=== PATIENT | female | born 1985 | race Caucasian/White ===

== ENCOUNTER 2018-01-28 22:46 | Observation (INO) | payer BC ==
[2018-01-29 00:01] LABS: Protime INR 1.02
[2018-01-29 00:02] LABS: Absolute Lymphocytes (CBC) 2.7 K/uL (0.7-4.9); Absolute Monocytes 0.8 K/uL (0.1-1.3); Basophils % 0.7 % (0-1.3); Eosinophils % 4.6 % (0-4.4); Hematocrit 39.2 % (36.0-45.0); Lymphocytes % 24.5 % (15.3-44.8); MCV 82.6 fL (80-100); Monocytes % 6.9 % (3.3-12.3); RBC Red Blood Cell Count 4.74 M/uL (3.86-4.86)
[2018-01-29 00:28] LABS: ALT/SGPT 36 U/L (12-78); AST/SGOT 15 U/L (15-37); Albumin 3.9 g/dL (3.4-5.0); Alkaline Phosphatase 110 U/L (45-117); BUN Blood Urea Nitrogen 8 mg/dL (7-18); Bicarbonate 25 mmol/L (21-32); Bilirubin Direct < 0.1 mg/dL (0-0.2); Bilirubin Total 0.2 mg/dL (0.2-1.0); Glucose Level 102 mg/dL (74-106); NT PRO-BNP 10 pg/mL (<125); Potassium 3.8 mmol/L (3.5-5.1); Protein, Total 7.4 g/dL (6.4-8.2); Sodium Level 139 mmol/L (136-145); Troponin (Emerg Dept Use Only) < 0.02 ng/mL (0.0-0.045)
[2018-01-29] MEDS ORDERED: ACETAMINOPHEN 500 MG TAB ONE (01:09)
[2018-01-29] MEDS ORDERED: FAMOTIDINE 20 MG/2 ML VIAL IV ONE (01:09)
--- NOTE | 2018-01-29 01:47 | EDPHYS ---
Physician Documentation [facility] Name: Fariha Larsen Age: 32 yrs Sex: Female : 1985 Arrival Date: 01/28/2018 Time: 22:50 Bed 28 Private MD: Holly Saxena H ED Physician Moisés Blevins HPI: 01/28 23:56 This 32 yrs old Female presents to ER via Ambulatory with complaints of jr8 Palpitations. 23:56 Onset: The symptoms/episode began/occurred acutely, today. Modifying factors: The jr8 symptoms are aggravated by nothing. The symptoms are alleviated by nothing. Associated signs and symptoms: Pertinent positives: chest pain. Severity of symptoms: At their worst the symptoms were moderate in the emergency department the symptoms are unchanged. The patient has experienced similar episodes in the past, a few times. The patient has not recently seen a physician. Patient stated that she has had palpitations for the past few months. Has subsequently been started on thyroid medicine as well due to new diagnosis of hypothyroidism within the past few months as well. Stated that tonight had hot flashes and felt flush and "odd feeling". Started to have palpitations and chest tightness. 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 - Social history:: Smoking status: Patient/guardian denies using tobacco, Patient uses alcohol, occasionally. Patient/guardian denies using street drugs. - Ebola Screening: : No symptoms or risks identified at this time. ROS: 01/29 00:04 Eyes: Negative for injury, pain, redness, and discharge, ENT: Negative for injury, jr8 pain, and discharge, Neck: Negative for injury, pain, and swelling, Respiratory: Negative for shortness of breath, cough, wheezing, and pleuritic chest pain, Abdomen/GI: Negative for abdominal pain, nausea, vomiting, diarrhea, and constipation, Back: Negative for injury and pain, MS/Extremity: Negative for injury and deformity, Skin: Negative for injury, rash, and discoloration, Neuro: Negative for headache, weakness, numbness, tingling, and seizure. Cardiovascular: Positive for chest pain, palpitations. Exam: 00:04 Eyes: Pupils equal round and reactive to light, extra-ocular motions intact. Lids and jr8 lashes normal. Conjunctiva and sclera are non-icteric and not injected. Cornea within normal limits. Periorbital areas with no swelling, redness, or edema. ENT: Nares patent. No nasal discharge, no septal abnormalities noted. Tympanic membranes are normal and external auditory canals are clear. Oropharynx with no redness, swelling, or masses, exudates, or evidence of obstruction, uvula midline. Mucous membranes moist. Neck: Trachea midline, no thyromegaly or masses palpated, and no cervical lymphadenopathy. Supple, full range of motion without nuchal rigidity, or vertebral point tenderness. No Meningismus. Cardiovascular: Regular rate and rhythm with a normal S1 and S2. No gallops, murmurs, or rubs. Normal PMI, no JVD. No pulse deficits. Respiratory: Lungs have equal breath sounds bilaterally, clear to auscultation and percussion. No rales, rhonchi or wheezes noted. No increased work of breathing, no retractions or nasal flaring. Abdomen/GI: Soft, non-tender, with normal bowel sounds. No distension or tympany. No guarding or rebound. No evidence of tenderness throughout. Back: No spinal tenderness. No costovertebral tenderness. Full range of motion. Skin: Warm, dry with normal turgor. Normal color with no rashes, no lesions, and no evidence of cellulitis. MS/ Extremity: Pulses equal, no cyanosis. Neurovascular intact. Full, normal range of motion. Neuro: Awake and alert, GCS 15, oriented to person, place, time, and situation. Cranial nerves II-XII grossly intact. Motor strength 5/5 in all extremities. Sensory grossly intact. Cerebellar exam normal. Normal gait. 00:04 ECG was reviewed by the Attending Physician. Vital Signs: 01/28 23:05 BP 150 / 97; Pulse 94; Resp 16 S; Temp 98.2; Pulse Ox 97% on R/A; Weight 72.57 kg (R); bb Height 5 ft. 4 in. (162.56 cm) (R); Pain 0/10; 01/29 00:05 BP 139 / 86; Pulse 89; Resp 20; Pulse Ox 97% on R/A; mt 01:15 BP 136 / 82; Pulse 97; Resp 18; Pulse Ox 100% on R/A; Pain 2/10; mg2 02:06 BP 112 / 73; Pulse 104; Resp 18; Pulse Ox 97% on R/A; Pain 0/10; mg2 11 23:05 Body Mass Index 27.46 (72.57 kg, 162.56 cm) bb MDM: 01/28 22:56 Patient medically screened. 8 01/29 00:06 Data interpreted: secured entrance monitor: rate is 95 beats/min, rhythm is regular, with jr8 unifocal PVCs, Interpretation: normal rate, normal rhythm. 01:44 Data reviewed: vital signs, nurses notes, lab test result(s), EKG, and as a result, I 8 will admit patient. Counseling: I had a detailed discussion with the patient and/or guardian regarding: the historical points, exam findings, and any diagnostic results supporting the discharge/admit diagnosis, lab results, radiology results, the need for further work-up and treatment in the hospital. Physician consultation: Denton Rodriguez MD was called at 01:44, was contacted at 01:44, regarding admission, to the telemetry unit. consult, patient's condition, and will see patient in ED. 01/28 23:36 Order name: Basic Metabolic Panel; Complete Time: 00:01/28 23:36 Order name: CBC with Diff; Complete Time: 00:01/28 23:36 Order name: LFT's; Complete Time: 00:01/28 23:36 Order name: Magnesium; Complete Time: 00:01/28 23:36 Order name: NT PRO-BNP; Complete Time: 00:01/28 23:36 Order name: PT-INR; Complete Time: 00:09 01/28 23:36 Order name: Troponin (emerg Dept Use Only); Complete Time: 00:01/28 23:36 Order name: XRAY Chest (1 view) [facility] 01/28 23:36 Order name: EKG; Complete Time: 23:37 [facility] 01/29 00:03 Order name: TSH; Complete Time: 01:51 [facility] 01/29 04:05 Order name: Creatine Phosphokinase [facility] 01/29 04:05 Order name: CKMB Creatine Kinase MB [facility] 01/28 23:36 Order name: Cardiac monitoring; Complete Time: 23:38 [facility] 01/28 23:36 Order name: EKG - Nurse/Tech; Complete Time: 23:39 [facility] 01/28 23:36 Order name: IV Saline Lock; Complete Time: 23:39 [facility] 01/28 23:36 Order name: Labs collected and sent; Complete Time: 23:39 [facility] 01/28 23:36 Order name: O2 Per Protocol; Complete Time: 23:39 [facility] 01/28 23:36 Order name: O2 Sat Monitoring; Complete Time: 23:39 jr8 EC:04 Rate is 95 beats/min. Rhythm is regular, Normal Sinus Rhythm. QRS [place] is Normal. VT jr8 interval is normal at 166 msec. QRS interval is normal at 70 msec. QT interval is prolonged at 480 msec. No Q waves. T waves are Inverted in lead V1. No ST changes noted. Clinical impression: NSR w/ Non-specific ST/T Changes and No evidence of ischemia. Interpreted by me. Reviewed by me. Administered Medications: 01:05 Drug: Pepcid 20 mg Route: IVP; Site: right antecubital; mg2 01:37 Follow up: Response: No adverse reaction; Marked relief of symptoms mg2 01:05 Drug: Tylenol 1000 mg Route: PO; mg2 01:37 Follow up: Response: No adverse reaction; Marked relief of symptoms mg2 Disposition: 04:27 Co-signature as Attending Physician, Moisés Blevins MD. barrera Disposition: 01/29/18 01:46 Hospitalization ordered by Denton Rodriguez for Observation. Preliminary diagnosis are Abnormal electrocardiogram [ECG] [EKG], Ventricular premature depolarization, Near Syncope. - Bed requested for Telemetry/MedSurg (observation). - Status is Observation. wh - Condition is Stable. - Problem is new. - Symptoms are unchanged. UTI on Admission? No Signatures: Dispatcher [employer] [facility] Moisés Blevins MD MD pkl Ballard, Brenda, RN RN Funmilayo Zhu ms Bari Velazquez PA PA jr8 Huan, Amaya Adolfo Ramirez RN RN mg2 Corrections: (The following items were deleted from the chart) 00:04 11 23:56 Patient stated that she has had palpitations for the past few months. Has jr8 subsequently been started on thyroid medicine as well due to new diagnosis of hypothyroidism within the past few months as well. . jr8 01/29 03:08 01:46 Hospitalization Ordered by Denton Rodriguez MD for Observation. Preliminary ms diagnosis is Abnormal electrocardiogram [ECG] [EKG]; Ventricular premature depolarization; Near Syncope. Bed requested for Telemetry/MedSurg (observation). Status is Observation. Condition is Stable. Problem is new. Symptoms are unchanged. UTI on Admission? No. jr8 04:10 03:08 01/29/2018 01:46 Hospitalization Ordered by Denton Rodriguez MD for Observation. Preliminary diagnosis is Abnormal electrocardiogram [ECG] [EKG]; Ventricular premature depolarization; Near Syncope. Bed requested for Telemetry/MedSurg (observation). Status is Observation. Condition is Stable. Problem is new. Symptoms are unchanged. UTI on Admission? No. ms
--- NOTE | 2018-01-29 01:47 | ER ---
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 Transition of care: patient was not received from another setting of care. Onset of symptoms was January 28, 2018. Risk Assessment: Do you want to hurt yourself or someone else? Patient reports no desire to harm self or others. Initial Sepsis Screen: Does the patient meet any 2 criteria? No. Patient's initial sepsis screen is negative. Does the patient have a suspected source of infection? No. Patient's initial sepsis screen is negative. Care prior to arrival: None. 23:01 Method Of Arrival: Ambulatory 23:01 Acuity: FABIÁN 3 bb Triage Assessment: 01/29 04:09 General: Behavior is calm, cooperative, appropriate for age. 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 - Social history:: Smoking status: Patient/guardian denies using tobacco, Patient uses alcohol, occasionally. Patient/guardian denies using street drugs. - Ebola Screening: : No symptoms or risks identified at this time. Screenin:15 Abuse screen: Denies threats or abuse. Denies injuries from another. Nutritional mg2 screening: No deficits noted. Tuberculosis screening: No symptoms or risk factors identified. Fall Risk None identified. Assessment: 23:16 General: Appears in no apparent distress. comfortable. Pain: Denies pain. Neuro: Level mg2 of Consciousness is awake, alert, obeys commands, Oriented to person, place, time, situation. Cardiovascular: Capillary refill < 3 seconds Patient's skin is warm and dry. Cardiovascular: Reports palpitations. Respiratory: Airway is patent Respiratory effort is even, unlabored, Respiratory pattern is regular, symmetrical. GI: Abdomen is flat, non-distended. : No signs and/or symptoms were reported regarding the genitourinary system. EENT: No signs and/or symptoms were reported regarding the EENT system. Derm: Skin is intact, is healthy with good turgor, Skin is pink, warm \\T\\ dry. normal. Musculoskeletal: No signs and/or symptoms reported regarding the musculoskeletal system. 01/29 02:06 Reassessment: Patient appears in no apparent distress at this time. Patient and/or mg2 family updated on plan of care and expected duration. Pain level reassessed. Patient is alert, oriented x 3, equal unlabored respirations, skin warm/dry/pink. patient informed about the plan for hospitalization. 03:05 Reassessment: Patient appears in no apparent distress at this time. Patient and/or wh family updated on plan of care and expected duration. Pain level reassessed. Patient is alert, oriented x 3, equal unlabored respirations, skin warm/dry/pink. Patient denies pain at this time. Vital Signs: 01/28 23:05 BP 150 / 97; Pulse 94; Resp 16 S; Temp 98.2; Pulse Ox 97% on R/A; Weight 72.57 kg (R); bb Height 5 ft. 4 in. (162.56 cm) (R); Pain 0/10; 01/29 00:05 BP 139 / 86; Pulse 89; Resp 20; Pulse Ox 97% on R/A; mt 01:15 BP 136 / 82; Pulse 97; Resp 18; Pulse Ox 100% on R/A; Pain 2/10; mg2 02:06 BP 112 / 73; Pulse 104; Resp 18; Pulse Ox 97% on R/A; Pain 0/10; mg2 11/02 23:05 Body Mass Index 27.46 (72.57 kg, 162.56 cm) bb ED Course: 01/28 22:50 Patient arrived in ED. es 22:50 Holly Saxena DO is Private Physician. es 22:56 Bari Velazquez PA is PHCP. jr8 22:56 Moisés Blevins MD is Attending Physician. jr8 22:58 Adolfo Ramirez, RN is Primary Nurse. mg2 23:02 Triage completed. 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 EKG completed in triage. Results shown to MD. Family accompanied patient. 23:19 Patient has correct armband on for positive identification. Bed in low position. Call mg2 light in reach. Door closed. Warm blanket given. 01/29 01:01 XRAY Chest (1 view) In Process Unspecified. EDMS 01:22 No provider procedures requiring assistance completed. Inserted saline lock: 22 gauge mg2 in right antecubital area, using aseptic technique. Blood collected. 01:45 Denton Rodriguez MD is Hospitalizing Provider. jr8 04:10 Patient admitted, IV remains in place. Administered Medications: 01:05 Drug: Pepcid 20 mg Route: IVP; Site: right antecubital; mg2 01:37 Follow up: Response: No adverse reaction; Marked relief of symptoms mg2 01:05 Drug: Tylenol 1000 mg Route: PO; mg2 01:37 Follow up: Response: No adverse reaction; Marked relief of symptoms mg2 Outcome: 01:46 Decision to Hospitalize by Provider. jr8 03:55 Admitted to Med/surg accompanied by nurse, family with patient, via wheelchair, room wh 228, with chart, Report called to Krystian Vicente RN 03:55 Condition: good 03:55 Instructed on the need for admit. 04:10 Patient left the ED. Signatures: Dispatcher [employer] Roxann Caro Brenda, RN RN bb Bari Velazquez PA PA jr8 [facility] Adolfo Ramirez, ANTONIO RN mg2
--- NOTE | 2018-01-29 02:53 | P.HP ---
Certification for Inpatient Patient admitted to: Observation With expected LOS: <2 Midnights Practitioner: I am a practitioner with admitting privileges, knowledge of patient current condition, hospital course, and medical plan of care. Services: Services provided to patient in accordance with Admission requirements found in Title 42 Section 412.3 of the Code of Federal Regulations Patient History Date of Service: 01/29/18 Reason for admission: For patient's History of Present Illness: Ms Larsen is a 32-year-old woman with history of hypothyroidism and asthma, who came to ER complaining of palpitation, chest pressure and hot flashes. Her symptoms started last night he states that suddenly started feeling her heart was racing associated with palpitation and chest pressure. She denied any shortness of breath, nausea or dizziness. She felt hot but her temperature was normal. She has had palpitations in the past but not like that. She says that for a few day has had nasal congestion and sore throat. EKG showed sinus rhythm with frequent more focal PVCs, and QT prolongation, lab work so far unremarkable. Allergies No Known Allergies Allergy (Verified 08/25/11 14:18) Home medications list reviewed: Yes Home Medications: Vits W-Ca,Fe,FA(<1Mg) [] 1 each PO DAILY 08/25/11 - Past Medical/Surgical History -: Hypothyroidism -: Asthma -: - Family History Family History: Reviewed- Non-Contributory - Social History Smoking Status: Former smoker Alcohol use: No CD- Drugs: No Caffeine use: Yes Place of Residence: Home Review of Systems 10-point ROS is otherwise unremarkable Physical Examination - Physical Exam General: Alert, In no apparent distress HEENT: Atraumatic, PERRLA, Mucous membr. moist/pink, EOMI, Sclerae nonicteric Neck: Supple, 2+ carotid pulse no bruit, No LAD, Without JVD or thyroid abnormality Respiratory: Clear to auscultation bilaterally, Normal air movement Cardiovascular: Normal S1 S2, Irregular heart rate/rhythm Gastrointestinal: Normal bowel sounds, No tenderness Musculoskeletal: No tenderness Integumentary: No rashes Neurological: Normal speech, Normal strength at 5/5 x4 extr, Normal tone, Normal affect Lymphatics: No axilla or inguinal lymphadenopathy - Studies Laboratory Data (last 24 hrs) 01/28/18 23:45: PT 12.0, INR 1.02 01/28/18 23:45: WBC 11.0 H, Hgb 13.3, Hct 39.2, Plt Count 219 01/28/18 23:45: Sodium 139, Potassium 3.8, BUN 8, Creatinine 0.70, Glucose 102, Magnesium 2.0, Total Bilirubin 0.2, AST 15, ALT 36, Alkaline Phosphatase 110 Assessment and Plan - Problems (Diagnosis) (1) Palpitation Current Visit: Yes Status: Acute (2) Frequent PVCs Current Visit: Yes Status: Acute (3) QT prolongation Current Visit: Yes Status: Acute (4) Hypothyroidism Current Visit: Yes Status: Acute Qualifiers: Hypothyroidism type: unspecified Qualified Code(s): E03.9 - Hypothyroidism , unspecified (5) Chest pain Current Visit: Yes Status: Acute Qualifiers: Chest pain type: precordial pain Qualified Code(s): R07.2 - Precordial pain - Plan The patient will be admitted to the hospital under observation due to palpitation and chest pain. Is remarkable for sinus rhythm with frequent PVCs and QT prolongation. Differential diagnosis is broad, but includes myocarditis , anxiety, long QT syndrome. Will order CK and CK-MB, echocardiogram, serial cardiac enzymes, and hand i thermal cutter evaluation. - Advance Directives Does patient have a Living Will: No Does patient have a Durable POA for Healthcare: No - Code Status/Comfort Care Code Status Assessed: Yes Code Status: Full Code
[2018-01-29] MEDS ORDERED: ACETAMINOPHEN 500 MG TAB PO PRN (03:29)
[2018-01-29] MEDS ORDERED: ONDANSETRON 4 MG/2 ML VIAL IV PRN (03:29)
[2018-01-29 04:05] LABS: CKMB Creatine Kinase MB < 1.0 ng/mL (0.3-3.6); Creatine Phosphokinase 85 U/L (26-192)
[2018-01-29 04:19] VITALS: BMI 29.1
[2018-01-29 04:26] VITALS: O2SAT 97
[2018-01-29 07:59] LABS: Urine Appearance CLEAR; Urine Bilirubin NEGATIVE (NEG); Urine Blood NEGATIVE (NEG); Urine Color YELLOW; Urine Glucose NEGATIVE (NEG); Urine Protein NEGATIVE (NEG); Urine Specific Gravity 1.015 (1.005-1.030); Urine Urobilinogen 0.2 mg/dL (0.2-1.0); Urine pH 6.5 (5.0-7.0)
--- NOTE | 2018-01-29 08:06 | RAD REPORT ---
EXAM DESCRIPTION: Letty Single View01/29/2018 1:00 am CLINICAL HISTORY: 2010 COMPARISON: none FINDINGS: The lungs appear clear of acute infiltrate. The heart is normal size IMPRESSION: No acute abnormalities displayed
--- NOTE | 2018-01-29 08:25 | EKG ---
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
[2018-01-29 08:57] LABS: Urine Bacteria <20 /HPF (<20); Urine Culture Reflex Order REFLEXED; Urine RBC <5 /HPF (NONE SEEN); Urine Yeast PRESENT (NONE SEEN)
[2018-01-29] MEDS ORDERED: ENOXAPARIN 40 MG/0.4 ML SQ SCH (09:00)
--- NOTE | 2018-01-29 09:37 | P.DS ---
Admission Date: 01/29/18 Discharge Date: 01/29/18 Primary Care Provider: Dr. Saxena Disposition: ROUTINE DISCHARGE Discharge Condition: GOOD Reason for Admission: Palpitations Consultations: Cardiology-Dr. Moulton Procedures: Medical problem list: Palpitations and chest pain with noted EKG changes showing an frequent PVCs and prolonged QT interval Hypothyroidism Adult ADD Seasonal allergies/asthma Brief History of Present Illness: 32-year-old female presented emergency room with palpitations and chest pain. Patient has had similar issues in the past but not like this. Patient with history of hypothyroidism, adult ADD, asthma and seasonal allergies. Patient also takes medication for control. Patient found to have EKG changes of frequent PVCs and long QT interval. Patient admitted for further evaluation. Hospital Course: Patient was evaluated for palpitations and chest pain prolonged QT interval. Patient admitted for further evaluation. Cardiac enzymes unremarkable. Blood pressure remained stable. Cardiology evaluated patient. Patient has history of hypothyroidism, adult ADD, seasonal allergies and asthma. Patient takes medication including [place] thyroid, control medication and ADD medication. Cardiology recommended for the patient to be discharged and have workup as an outpatient. Patient will need a follow up with Cardiology this week to obtain Holter monitor and echocardiogram. No need for medication at this. I will recommend for the patient to discontinue her ADD medication until she is further evaluated by cardiology. Patient will need to decrease caffeine intake. Recommend not to use any decongestants [id number]. Patient has hypothyroidism. Tsh within normal range. Patient may continue with [place] thyroid 60 mg daily. Recommendation to recheck thyroid panel in 4- 6 weeks to monitor progress. Patient has adult ADD. At discharge, will recommend to discontinue medication until she is fully evaluated by Cardiology as outpatient. Patient has seasonal allergies and asthma. Patient may continue with albuterol as needed. Patient also takes Zyrtec as needed. Vital Signs/Physical Exam: Temp Pulse Resp BP Pulse Ox 97.5 F 85 18 137/87 96 01/29/18 04:00 01/29/18 04:00 01/29/18 04:00 01/29/18 04:00 01/29/18 04:00 General: Alert, In no apparent distress, Oriented x3, Cooperative HEENT: Atraumatic Neck: Supple Respiratory: Clear to auscultation bilaterally, Normal air movement Cardiovascular: Normal pulses, Regular rate/rhythm Gastrointestinal: Normal bowel sounds, No tenderness, No masses, No rebound, No guarding Musculoskeletal: No erythema, No tenderness, No warmth Integumentary: No tenderness/swelling, No erythema, No warmth, No cyanosis Neurological: Normal speech, Normal strength at 5/5 x4 extr, Normal tone, Normal affect Laboratory Data at Discharge: WBC 11.0 K/uL (4.3-10.9) H 01/28/18 23:45 Hgb 13.3 g/dL (12.0-15.0) 01/28/18 23:45 Hct 39.2 % (36.0-45.0) 01/28/18 23:45 Plt Count 219 K/uL (152-406) 01/28/18 23:45 PT 12.0 SECONDS (9.5-12.5) 01/28/18 23:45 INR 1.02 01/28/18 23:45 Sodium 139 mmol/L (136-145) 01/28/18 23:45 Potassium 3.8 mmol/L (3.5-5.1) 01/28/18 23:45 BUN 8 mg/dL (7-18) 01/28/18 23:45 Creatinine 0.70 mg/dL (0.55-1.3) 01/28/18 23:45 Glucose 102 mg/dL (74-106) 01/28/18 23:45 Magnesium 2.0 mg/dL (1.8-2.4) 01/28/18 23:45 Total Bilirubin 0.2 mg/dL (0.2-1.0) 01/28/18 23:45 AST 15 U/L (15-37) 01/28/18 23:45 ALT 36 U/L (12-78) 01/28/18 23:45 Alkaline Phosphatase 110 U/L (45-117) 01/28/18 23:45 Troponin I < 0.02 ng/mL (0.0-0.045) 01/29/18 03:29 Triglycerides 193 mg/dL (<150) H 01/29/18 03:57 Cholesterol 146 mg/dL (<200) 01/29/18 03:57 HDL Cholesterol 42 mg/dL (40-60) 01/29/18 03:57 Cholesterol/HDL Ratio 3.48 01/29/18 03:57 Home Medications: Albuterol Inhaler [Ventolin Inhaler*] 2 inh PRN PRN 01/29/18 Cetirizine HCl [All Day Allergy] 10 mg PO PRN PRN 01/29/18 Norethindrone-E.estradiol-Iron [Loestrin Fe 1-20 Tablet] 1 tab PO DAILY Thyroid,Pork [[place] Thyroid] 60 mg PO DAILY 01/29/18 Patient Discharge Instructions: 1. Patient will need to follow up with her PCP in 1 week to follow up this hospitalization. 2. Patient was evaluated for palpitations and chest pain prolonged QT interval. Patient admitted for further evaluation. Cardiac enzymes unremarkable. Blood pressure remained stable. Cardiology evaluated patient. Patient has history of hypothyroidism, adult ADD, seasonal allergies and asthma. Patient takes medication including [place] thyroid, control medication and ADD medication. Cardiology recommended for the patient to be discharged and have workup as an outpatient. Patient will need a follow up with Cardiology this week to obtain Holter monitor and echocardiogram. No need for medication at this. I will recommend for the patient to discontinue her ADD medication until she is further evaluated by cardiology. Patient will need to decrease caffeine intake. Recommend not to use any decongestants [id number]. 3. Patient has hypothyroidism. Tsh within normal range. Patient may continue with [place] thyroid 60 mg daily. Recommendation to recheck thyroid panel in 4-6 weeks to monitor progress. 4. Patient has adult ADD. At discharge, will recommend to discontinue medication until she is fully evaluated by Cardiology as outpatient. 5. Patient has seasonal allergies and asthma. Patient may continue with albuterol as needed. Patient also takes Zyrtec as needed. Diet: AHA Activity: Ad tejal Time spent managing pt's care (in minutes): 55
[2018-01-29 14:37] VITALS: BP 118/65; TEMP 98.3
--- NOTE | 2018-01-29 14:46 | CON ---
History Of Present Illness: Ms. Larsen came to the hospital because she felt flushed last night. Too k her pulse, it was around 120. She did not come to the hospital right then and over the evening. H er pulse has been everywhere from in the low 50s to the mid 70s and 80s to 120. When she got to the emergency room, she was in sinus rhythm with PVCs. Presently her blood pressure is 131/77, heart rat e 89, temperature 97.8, and she is in sinus rhythm. Ms. Larsen has never had any kind of heart troubl e. She is multigravid. She has hypothyroidism and takes thyroid replacement medicine. She has atte ntion deficit disorder and takes Adderall. Uses excessive amounts of caffeine, probably does not sle ep very much. Outpatient Medications: Cetirizine, norethindrone, estradiol, dextroamphetamine, amphetamine, thyroi d pork, and albuterol. Physical Examination: General: 5 feet 4 inches, 169 pounds. HEENT: Normal. Lungs: Clear. Neck: Carotids, no bruit. Heart: Within normal limits. Extremities: Normal. Diagnostic Data: Her electrocardiogram shows sinus rhythm with PVCs, otherwise it is normal. Her QT c is borderline at 480. Laboratory Data: Reveals a cholesterol of 146. Blood sugars there was only 1 measured at 102. Trop onins are all normal. TSH is 1.920. Impression: The patient has some kind of arrhythmia. I think it was more than a few PVCs when she c miguel in. It is possible she has supraventricular tachycardia or atrial fibrillation. I am going to r ecommend that we allow her to go home and do outpatient monitoring with an event monitor, get an outp atient echo and stress test, let us see what kind of arrhythmia this is. She would be much better of f if she did not take Adderall, cut down on sugary drinks, cut down on caffeine use. Thank you very much for your kind referral of Ms. Larsen. I will follow her along with you. TRAN/ELVI Voice ID: [id number] Report ID: [id number]
[2018-01-30] MEDS ORDERED: THYROID 30 MG TAB PO SCH (06:00)
[2018-01-30] MEDS ORDERED: NORETHINDRONE E ESTRADIOL IRON PO SCH (09:00)
[2018-01-30] MEDS ORDERED: THYROID PORK 60 MG PO SCH (09:00)
== END 2018-01-29 12:26 | disposition home or self-care (01) ==
LOC: ER 22:46 → ERHOLD 01-29 01:46 → 2ND 01-29 03:27
PROVIDERS: ADMIT Physician Assistant; ATTEND Internal Medicine
DX: R00.2 Palpitations (principal); R07.9 Chest pain, unspecified; I45.81 Long QT syndrome; E03.9 Hypothyroidism, unspecified; F98.8 Other specified behavioral and emotional disorders with onset usually occurring in childhood and adolescence; J45.909 Unspecified asthma, uncomplicated; J30.2 Other seasonal allergic rhinitis
CPT/HCPCS: 36415; 71045; 80048; 80061; 80076; 81001; 82550; 82553; 83735; 83880; 84443; 84484; 85025; 85610; 87077; 87086; 87088; 87186; 93005; 96374; 99285; G0378; J1650

== ENCOUNTER 2020-05-24 14:36 | Emergency (ER) | payer OTHER ==
--- OUTSIDE RECORDS SUMMARY | 2020-05-24 14:38 | XMS REPORT | Continuity of Care Document ---
:1985 Author Organization [facility] t Address [address] [place] [address] Care Team Providers Name Role Phone Lobito Desai NP Attending Clinician Problems This patient has no known problems. Allergies, Adverse Reactions, Alerts This patient has no known allergies or adverse reactions. Medications This patient has no known medications. Procedures This patient has no known procedures. Encounters Start End Encounter Admission Attending Care Care Encounter Source Date/Time Date/Time Type Type Clinicians Facility Department ID 2020-03-29 2020-03-29 [id number] 11:04:00 15:31:00 Sirena العراقي [id number] [place] [id number] [place] [id number] Results This patient has no known results.
[2020-05-24 15:33] LABS: Urine Blood NEGATIVE (NEG); Urine Glucose NEGATIVE (NEG); Urine Protein NEGATIVE (NEG); Urine Specific Gravity 1.025 (1.005-1.030); Urine pH 5.5 (5.0-7.0)
[2020-05-24 15:33] LABS: Urine Specific Gravity 1.025 (1.005-1.030)
[2020-05-24 15:51] LABS: Urine Bacteria >50 /HPF (<20); Urine Mucus HEAVY /HPF (NONE SEEN); Urine RBC <5 /HPF (NONE SEEN); Urine Yeast PRESENT (NONE SEEN)
--- NOTE | 2020-05-24 16:12 | RAD REPORT ---
EXAM DESCRIPTION: CTAbdomen Pelvis W Contrast - 05/24/2020 3:52 pm CLINICAL HISTORY: Abdominal pain. ABD PAIN COMPARISON: Abdomen Pelvis W Contrast dated 01/25/2017; Abdomen Pelvis W Contrast dated 09/03/2015 ; CT ABD PELVIS W CONTRAST dated 08/09/2012 TECHNIQUE: Biphasic CT imaging of the abdomen and pelvis was performed with 100 ml non-ionic IV cont rast. All CT scans are performed using dose optimization technique as appropriate and may include automated exposure control or mA/KV adjustment according to patient size. FINDINGS: The lung bases are clear. The liver, spleen, pancreas, adrenal glands are within normal limits. Horseshoe kidney noted. No bowel obstruction, free air, free fluid or abscess. Small fat containing ventral hernia. The appen saida is normal. No evidence of significant lymphadenopathy. No suspicious bony findings. IMPRESSION: No acute intra-abdominal or pelvic finding.
--- NOTE | 2020-05-24 16:31 | ER ---
Nurse's Notes [facility] Name: Fariha Larsen Age: 34 yrs Sex: Female : 1985 Arrival Date: 05/24/2020 Time: 14:39 Bed 15 Private MD: Holly Saxena H Diagnosis: Lower abdominal pain, unspecified Presentation: 05/24 14:55 Chief complaint: Patient states: Lower abd/RLQ abd pain for 3 days, worse since ll1 yesterday. + nausea. No fever. Coronavirus screen: Client denies travel out of the [place] in the last 14 days. At this time, the client does not indicate any symptoms associated with coronavirus-19. Ebola Screen: Patient denies travel to an Ebola-affected area in the 21 days before illness onset. Initial Sepsis Screen: Does the patient meet any 2 criteria? No. Patient's initial sepsis screen is negative. Does the patient have a suspected source of infection? Yes: Acute abdominal pain. Risk Assessment: Do you want to hurt yourself or someone else? Patient reports no desire to harm self or others. Onset of symptoms was May 22, 2020. 14:55 Method Of Arrival: Ambulatory ll1 14:55 Acuity: FABIÁN 3 ll1 Historical: - Allergies: 14:57 NKDA; ll1 - PMHx: 14:57 Asthma; Hypothyroidism; ll1 - PSHx: 14:57 ; R eye ruptured globe; skin grafts; ll1 - Immunization history:: Flu vaccine is up to date. - Social history:: Smoking status: Patient denies any tobacco usage or history of. Screenin:25 Abuse screen: Denies threats or abuse. Nutritional screening: No deficits noted. vg1 Tuberculosis screening: No symptoms or risk factors identified. Fall Risk None identified. Assessment: 15:23 General: Appears in no apparent distress. uncomfortable, Behavior is calm, cooperative. vg1 Pain: Complains of pain in umbilical area and right lower quadrant; pain from umbilial radiates to left side of ABD Pain currently is 6 out of 10 on a pain scale. Pain began 2-3 days ago. Neuro: Level of Consciousness is awake, alert, obeys commands, Oriented to person, place, time, situation. Cardiovascular: Patient's skin is warm and dry. Respiratory: Airway is patent Respiratory effort is even, unlabored. GI: Bowel sounds present X 4 quads. Abd is soft X 4 quads Abdomen is tender to palpation in umbilical area and right lower quadrant. : No signs and/or symptoms were reported regarding the genitourinary system. EENT: No signs and/or symptoms were reported regarding the EENT system. Derm: Skin is intact, is healthy with good turgor. Musculoskeletal: Circulation, motion, and sensation intact. 16:38 Reassessment: Patient currently up for d/c. Currently waiting for IV fluid completion. vg1 17:44 Reassessment: Patient appears in no apparent distress at this time. Patient and/or vg1 family updated on plan of care and expected duration. Pain level reassessed. Patient is alert, oriented x 3, equal unlabored respirations, skin warm/dry/pink. Vital Signs: 14:55 BP 120 / 95; Pulse 80; Resp 16; Temp 97.6; Pulse Ox 98% ; Weight 77.11 kg; Height 5 ft. ll1 4 in. (162.56 cm); Pain 7/10; 15:24 BP 114 / 75; Pulse 72; Resp 16; Pulse Ox 98% on R/A; vg1 16:30 BP 120 / 82; Pulse 76; Resp 16; Pulse Ox 100% on R/A; vg1 17:00 BP 121 / 94; Pulse 77; Resp 16; Pulse Ox 100% on R/A; vg1 14:55 Body Mass Index 29.18 (77.11 kg, 162.56 cm) ll1 ED Course: 14:39 Patient arrived in ED. mr 14:39 Holly Saxena DO is Private Physician. mr 14:40 [facility] Parsons [facility]-C [facility]. kb 14:40 Ari Bender MD is Attending Physician. kb 14:56 Triage completed. ll1 14:57 Arm band placed on Patient placed in an exam room, on a stretcher. ll1 14:59 Coni Carrasquillo, RN is Primary Nurse. vg1 15:25 Patient has correct armband on for positive identification. Placed in gown. Bed in low vg1 position. Call light in reach. Side rails up X 1. 15:45 Inserted saline lock: 22 gauge in right antecubital area, using aseptic technique. vg1 ,using aseptic technique. completed by Coni from Radiology. 15:53 CT Abd/Pelvis - IV Contrast Only In Process Unspecified. EDMS 16:30 Brigid Rojas MD is Referral Physician. kb 18:53 No provider procedures requiring assistance completed. IV discontinued, intact, vg1 bleeding controlled, No redness/swelling at site. Pressure dressing applied. Administered Medications: 16:37 Drug: Flagyl 500 mg Volume: 100 ml; Route: IVPB; Rate: 200 ml/hr; Infused Over: 30 vg1 mins; Site: right antecubital; 17:11 Follow up: IV Status: Completed infusion vg1 17:11 Drug: LevaQUIN 750 mg Volume: 150 ml; Route: IVPB; Infused Over: 90 mins; Site: right vg1 antecubital; 18:43 Follow up: IV Status: Completed infusion vg1 18:52 Drug: Zofran (Ondansetron) 4 mg Route: IVP; Site: right antecubital; vg1 18:53 Follow up: Response: Medication administered at discharge. vg1 Outcome: 16:30 Discharge ordered by . kb 18:53 Discharged to home ambulatory. vg1 18:53 Condition: stable 18:53 Discharge instructions given to patient, Instructed on discharge instructions, follow up and referral plans. Demonstrated understanding of instructions, follow-up care. 18:53 Patient left the ED. vg1 Signatures: Dispatcher [employer] EDHI Leanne Parsons, DEB BARRYP-Everett SchultzMally Victoria, RN RN vg1 Nellie March RN RN ll1
--- NOTE | 2020-05-24 16:31 | EDPHYS ---
Physician Documentation [facility] Name: Fariha Larsen Age: 34 yrs Sex: Female : 1985 Arrival Date: 05/24/2020 Time: 14:39 Bed 15 Private MD: Holly Saxena H ED Physician Ari Bender HPI: 05/24 16:27 This 34 yrs old Female presents to ER via Ambulatory with complaints of kb Abdominal Pain. 16:27 The patient presents with abdominal pain right lower quadrant. Onset: The kb symptoms/episode began/occurred yesterday. The symptoms do not radiate. Associated signs and symptoms: Pertinent positives: nausea, Pertinent negatives: constipation, diarrhea, fever, vomiting. The symptoms are described as constant, sharp. Modifying factors: The symptoms are alleviated by nothing, the symptoms are aggravated by movement, pressure, walking. Severity of pain: At its worst the pain was moderate in the emergency department the pain is unchanged. The patient has not experienced similar symptoms in the past. The patient has been recently seen by a physician:. Historical: - Allergies: 14:57 NKDA; ll1 - PMHx: 14:57 Asthma; Hypothyroidism; ll1 - PSHx: 14:57 ; R eye ruptured globe; skin grafts; ll1 - Immunization history:: Flu vaccine is up to date. - Social history:: Smoking status: Patient denies any tobacco usage or history of. ROS: 16:27 Constitutional: Negative for fever, chills, and weight loss, Cardiovascular: Negative kb for chest pain, palpitations, and edema, Respiratory: Negative for shortness of breath, cough, wheezing, and pleuritic chest pain, MS/Extremity: Negative for injury and deformity, Skin: Negative for injury, rash, and discoloration, Neuro: Negative for headache, weakness, numbness, tingling, and seizure. 16:27 Abdomen/GI: Positive for abdominal pain, nausea. Exam: 16:27 Constitutional: This is a well developed, well nourished patient who is awake, alert, kb and in no acute distress. Head/Face: Normocephalic, atraumatic. Cardiovascular: Regular rate and rhythm with a normal S1 and S2. No gallops, murmurs, or rubs. Normal PMI, no JVD. No pulse deficits. Respiratory: Lungs have equal breath sounds bilaterally, clear to auscultation and percussion. No rales, rhonchi or wheezes noted. No increased work of breathing, no retractions or nasal flaring. Skin: Warm, dry with normal turgor. Normal color with no rashes, no lesions, and no evidence of cellulitis. Neuro: Awake and alert, GCS 15, oriented to person, place, time, and situation. Cranial nerves II-XII grossly intact. Motor strength 5/5 in all extremities. Sensory grossly intact. Cerebellar exam normal. Normal gait. 16:27 Abdomen/GI: Inspection: abdomen appears normal, Bowel sounds: normal, in all quadrants, Palpation: mild abdominal tenderness, in all quadrants, moderate abdominal tenderness, in the right lower quadrant. Vital Signs: 14:55 BP 120 / 95; Pulse 80; Resp 16; Temp 97.6; Pulse Ox 98% ; Weight 77.11 kg; Height 5 ft. ll1 4 in. (162.56 cm); Pain 7/10; 15:24 BP 114 / 75; Pulse 72; Resp 16; Pulse Ox 98% on R/A; vg1 16:30 BP 120 / 82; Pulse 76; Resp 16; Pulse Ox 100% on R/A; vg1 17:00 BP 121 / 94; Pulse 77; Resp 16; Pulse Ox 100% on R/A; vg1 14:55 Body Mass Index 29.18 (77.11 kg, 162.56 cm) ll1 MDM: 14:40 Patient medically screened. kb 16:19 Data reviewed: vital signs, nurses notes. Data interpreted: Pulse oximetry: on room air kb is 98 %. Interpretation: normal. Counseling: I had a detailed discussion with the patient and/or guardian regarding: the historical points, exam findings, and any diagnostic results supporting the discharge/admit diagnosis, lab results, radiology results, the need for outpatient follow up, a family practitioner, to return to the emergency department if symptoms worsen or persist or if there are any questions or concerns that arise at home. Physician consultation: Brigid Rojas MD was contacted at 16:19, regarding consult, patient's condition, and will see patient in office, next week, wants a dose of levaquin and flagyl given IV prior to discharge. She gave pt prescription for these meds at home. 05/24 15:22 Order name: Urine --Ancillary (enter results); Complete Time: 15:38 kb 05/24 15:22 Order name: Urine Microscopic Only; Complete Time: 15:53 kb 05/24 15:23 Order name: Urine Dipstick--Ancillary (enter results); Complete Time: 15:38 kb 05/24 15:52 Order name: Urine Culture EDMS 05/24 14:41 Order name: CT Abd/Pelvis - IV Contrast Only; Complete Time: 16:21 kb 05/24 14:41 Order name: Urine Dipstick-Ancillary (obtain specimen); Complete Time: 15:22 kb 05/24 14:41 Order name: Urine Test (obtain specimen); Complete Time: 15:22 kb 05/24 16:24 Order name: IV; Complete Time: 16:24 vg1 Administered Medications: 16:37 Drug: Flagyl 500 mg Volume: 100 ml; Route: IVPB; Rate: 200 ml/hr; Infused Over: 30 vg1 mins; Site: right antecubital; 17:11 Follow up: IV Status: Completed infusion vg1 17:11 Drug: LevaQUIN 750 mg Volume: 150 ml; Route: IVPB; Infused Over: 90 mins; Site: right vg1 antecubital; 18:43 Follow up: IV Status: Completed infusion vg1 18:52 Drug: Zofran (Ondansetron) 4 mg Route: IVP; Site: right antecubital; vg1 18:53 Follow up: Response: Medication administered at discharge. vg1 Disposition: 05/24/20 16:30 Discharged to Home. Impression: Lower abdominal pain, unspecified. - Condition is Stable. - Discharge Instructions: Abdominal Pain, Adult, [id number]. - Medication Reconciliation Form, Thank You Letter, Antibiotic Education, Prescription Opioid Use form. - Follow up: Emergency Department; When: As needed; Reason: Worsening of condition. Follow up: Private Physician; When: 2 - 3 days; Reason: Recheck today's complaints, Continuance of care, Re-evaluation by your physician. Follow up: Brigid Rojas MD; When: 1 week. Addendum: 05/27/2020 05:10 Co-signature as Attending Physician, Ari Bender MD I agree with the assessment and k dr plan of care. Signatures: Dispatcher [employer] EDMS Leanne Parsons, ASSISTANT GOLF COACH-C ASSISTANT GOLF COACH-Ckb Ari Bender MD MD kdr Garcia, Victoria, RN RN vg1 Nellie March, RN RN ll1 Corrections: (The following items were deleted from the chart) 05/24 15:18 14:42 BASIC METABOLIC PANEL+C.LAB.BRZ ordered. EDMS EDMS 15:18 14:42 CBC+H.LAB.BRZ ordered. EDVT EDMS 15:22 14:41 Labs collected and sent ordered. kb vg1 15:23 14:41 IV Saline Lock ordered. kb vg1 18:53 16:30 05/24/2020 16:30 Discharged to Home. Impression: Lower abdominal pain, vg1 unspecified. Condition is Stable. Forms are Medication Reconciliation Form, Thank You Letter, Antibiotic Education, Prescription Opioid Use. Follow up: Emergency Department; When: As needed; Reason: Worsening of condition. Follow up: Private Physician; When: 2 - 3 days; Reason: Recheck today's complaints, Continuance of care, Re-evaluation by your physician. Follow up: Brigid Rojas; When: 1 week. kb
[2020-05-24] MEDS ORDERED: Levofloxacin 750mg IV 750 MG/150 ML BAG IV ONE (16:48)
[2020-05-24] MEDS ORDERED: METRONIDAZOLE 500mg IVPB 500 MG/100 ML BAG IV ONE (16:48)
[2020-05-24] MEDS ORDERED: ONDANSETRON 4 MG/2 ML VIAL ONE (19:02)
[2020-05-24 20:02] VITALS: TEMP 97.6
[2020-05-24 20:03] VITALS: O2SAT 100
[2020-05-24 20:04] VITALS: BP 121/94
== END 2020-05-24 18:53 | disposition home or self-care (01) ==
LOC: ER 14:36
DX: R10.31 Right lower quadrant pain (principal)
CPT/HCPCS: 96365; 96367; 87088; 87086; 81025; 74177; 96375; 99284; Q9967; J2405; 81003; 81015

== ENCOUNTER 2020-11-17 10:59 | Emergency (ER) | payer OTHER ==
--- OUTSIDE RECORDS SUMMARY | 2020-11-17 11:02 | XMS REPORT | Continuity of Care Document ---
:1985 Author Organization [facility] t Address [address] [place] [address] Care Team Providers Name Role Phone Hardeep Johnson DO Attending Clinician Lobito Desai NP Attending Clinician Problems Condition Condition Condition Status Onset Resolution Last Treating Co mments Source Name Details Category Date Date Treatment Clinician Date Hypothyroi Hypothyroi Problem [facility] [place] [facility] Diabetes Diabetes Problem Active [place] mellitus Mellitus 3-30 da 00:[facility] Hypertensi Hypertensi Problem Active [facility] [place] ve ve 3-30 da disorder Disorder 00:00: [facility] Asthma Asthma Problem Active [place] 3-30 da 00:[facility] Allergies, Adverse Reactions, Alerts This patient has no known allergies or adverse reactions. Social History Smoking Status Start Date Stop Date Source Never Smoker Morning Sun [facility] Medications Ordered Filled Start Stop Current Ordering Indication Dosage Frequency Signature Comments Components Source Medication Medication Date Date Medication? Clinician (SIG) Name Name dextroamphe dextroamphe No dextroamph [place] tamine-amph tamine-amph etamine-am da etamine ER etamine ER phetamine [facility] 10 mg 24hr 10 mg 24hr ER 10 mg al capsule,ext capsule,ext 24hr H ealth end release end release capsule,ex Out[facility] TAKE 1 TAKE 1 tend h CAPSULE BY CAPSULE BY release Program MOUTH EVERY MOUTH EVERY TAKE 1 DAY DAY CAPSULE BY MOUTH EVERY DAY metformin metformin No metformin [place] 500 mg 500 mg 500 mg da tablet TAKE tablet TAKE tablet [facility] 1 TABLET BY 1 TABLET BY TAKE 1 al MOUTH EVERY MOUTH EVERY TABLET BY Health DAY WITH DAY WITH MOUTH Outrea c FOOD FOOD EVERY DAY h WITH FOOD Program metoprolol metoprolol No metoprolol [place] succinate succinate succinate da ER 25 mg ER 25 mg ER 25 mg Epi scop tablet,exte tablet,exte tablet,ext al nded nded ended Health release 24 release 24 release 24 Out[facility] hr TAKE 1 hr TAKE 1 hr TAKE 1 h TABLET BY TABLET BY TABLET BY Program MOUTH EVERY MOUTH EVERY MOUTH DAY DAY EVERY DAY Symbicort Symbicort No Symbicort [place] 160 mcg-4.5 160 mcg-4.5 160 d a mcg/actuati mcg/actuati mcg-4.5 [facility] on HFA on HFA mcg/actuat al aerosol aerosol ion HFA Health inhaler inhaler aerosol Outrea c INHALE 2 INHALE 2 inhaler h PUFFS BY PUFFS BY INHALE 2 Pro gram MOUTH TWICE MOUTH TWICE PUFFS BY A DAY A DAY MOUTH TWICE A DAY Tri-Lo-Esta Tri-Lo-Esta No Tri-Lo-Est [place] rylla 0.18 rylla 0.18 arylla d a mg/0.215 mg/0.215 0.18 [facility] mg/0.25 mg/0.25 mg/0.215 al mg-25 mcg mg-25 mcg mg/0.25 He alth tablet TAKE tablet TAKE mg-25 mcg [facility] 1 TABLET BY 1 TABLET BY tablet h MOUTH EVERY MOUTH EVERY TAKE 1 Program DAY DAY TABLET BY MOUTH EVERY DAY albuterol albuterol No albuterol [place] sulfate HFA sulfate HFA sulfate da 90 90 HFA 90 [facility] mcg/actuati mcg/actuati mcg/actuat al on aerosol on aerosol ion Hea lth inhaler USE inhaler USE aerosol [facility] 1 PUFF 1 PUFF inhaler h EVERY 4 6 EVERY 4 6 USE 1 PUFF Program HOURS HOURS EVERY 4 6 NEEDED FOR NEEDED FOR HOURS SHORTNESS SHORTNESS NEEDED FOR OF BREATH OF BREATH SHORTNESS OF BREATH Nebo Nebo No 1 Nebo [place] Thyroid 60 Thyroid 60 Thyroid 60 da mg tablet mg tablet mg tablet [facility] Take 1 Take 1 Take 1 al tablet by tablet by tablet by Health oral route oral route oral route [facility] for 90 for 90 for 90 h days. days. days. Program azithromyci azithromyci No azithromyc [place] n 250 mg n 250 mg in 250 mg da tablet TAKE tablet TAKE tablet [facility] 2 TABLETS 2 TABLETS TAKE 2 al (500 MG) BY (500 MG) BY TABLETS Health ORAL ROUTE ORAL ROUTE (500 MG) Outreac ONCE DAILY ONCE DAILY BY ORAL h FOR 1 DAY FOR 1 DAY ROUTE ONCE Program THEN 1 THEN 1 DAILY FOR TABLET (250 TABLET (250 1 DAY THEN MG) BY ORAL MG) BY ORAL 1 TABLET ROUTE ONCE ROUTE ONCE (250 MG) DAILY FOR 4 DAILY FOR 4 BY ORAL DAYS DAYS ROUTE ONCE DAILY FOR 4 DAYS Vital Signs Vital Name Observation Time Observation Value Comments Source Height 2020-06-25 00:00:00 62 [in_i] [facility] BMI (Body Mass 2020-06-25 00:00:00 30.9 kg/m2 [facility] 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 Denominational Index) Health Outreach Program Body Weight 2020-06-25 00:00:00 2704 [oz_av] [facility] Procedures Procedure Date / Time Performed Performing Clinician [facility] e Orthopedic Surgery Morning Sun E[facility]opal [facility] Outreach [facility] Delivery [facility] copal Health Outreach Program Eye Surgery Morning Sun [facility] Plan of Care Planned Activity Planned Date Details Comments Source Diagnostic Test 2020-06-25 influenza virus A + B [place] Pending 00:00:00 and SARS CoV 2 [facility] (COVID-19) and RSV Outreach Program RNA panel, MARIELOS+probe, respiratory specimen [code = influenza virus A + B and SARS CoV 2 (COVID-19) and RSV RNA panel, MARIELOS+probe, respiratory specimen] Encounters Start End Encounter Admission Attending Care Care Encounter Source Date/Time Date/Time Type Type Clinicians Facility Department ID 2020-06-25 2020-06-25 Kirk [facility] [place] [facility] [id number] [facility] Jim Romeo [employer] 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 Program 2020-06-18 2020-06-18 Patient [facility] [id number] 00:00:00 00:00:00 Outreach [facility] [id number] [facility] [id number] GL[place]A [id number] 2020-03-29 2020-03-29 Emergency [facility] [id number] 11:04:00 15:31:00 Sirena العراقي [id number] Tommy [id number] [place] [id number] Results This patient has no known results.
[2020-11-17 13:37] LABS: Absolute Lymphocytes (CBC) 2.2 K/uL (0.7-4.9); Basophils % 0.9 % (0-1.3); Hematocrit 37.2 % (36.0-45.0); Lymphocytes % 38.6 % (15.3-44.8); MPV 9.2 fL (7.6-11.3)
[2020-11-17 13:38] LABS: Protime INR 0.98
[2020-11-17] MEDS ORDERED: NA CHLORIDE 0.9% 1,000 ML ONE (13:41)
--- NOTE | 2020-11-17 13:57 | RAD REPORT ---
EXAM DESCRIPTION: RAD - Chest Single View - 11/17/2020 1:11 pm CLINICAL HISTORY: CHEST PAIN COMPARISON: January 2018 TECHNIQUE: AP portable chest image was obtained 11/17/2020 1:11 pm . FINDINGS: No peripheral mass or consolidation. Interstitial markings in each lower lung field are mi ldly prominent, fractionally increased over comparison. A mild interstitial edema or infiltrate would be possible. No airspace disease confirmed. Heart size and vasculature are normal range. Failure or volume overload are not suspected. No measurable pleural effusion and no pneumothorax. No acute bony abnormality seen. No acute aortic findings suspected. IMPRESSION: No peripheral mass or consolidation. Slight increase in the bibasilar interstitial pattern could be a mild interstitial edema or infiltrat e.
[2020-11-17 14:04] LABS: ALT/SGPT 48 U/L (12-78); AST/SGOT 15 U/L (15-37); Albumin 3.6 g/dL (3.4-5.0); Alkaline Phosphatase 91 U/L (45-117); BUN Blood Urea Nitrogen 9 mg/dL (7-18); Bicarbonate 25 mmol/L (21-32); Bilirubin Direct < 0.1 mg/dL (0-0.2); Bilirubin Total 0.1 mg/dL (0.2-1.0); Glucose Level 92 mg/dL (74-106); Magnesium 1.9 mg/dL (1.8-2.4); NT PRO-BNP 129 pg/mL (<125); Potassium 3.8 mmol/L (3.5-5.1); Protein, Total 7.3 g/dL (6.4-8.2); Sodium Level 141 mmol/L (136-145); Troponin (Emerg Dept Use Only) < 0.02 ng/mL (0.0-0.045)
[2020-11-17 14:54] LABS: Urine Blood Negative (Negative); Urine Glucose Negative (Negative); Urine Protein Negative (Negative); Urine Specific Gravity 1.025 (1.005-1.030)
[2020-11-17] MEDS ORDERED: predniSONE 20 MG TAB ONE (14:54)
[2020-11-17] MEDS ORDERED: ASPIRIN 81 MG CHEWABLE TABLET ONE (14:54)
[2020-11-17] MEDS ORDERED: FAMOTIDINE 20 MG/2 ML VIAL IV ONE (14:55)
--- NOTE | 2020-11-17 15:12 | RAD REPORT ---
EXAM DESCRIPTION: US - Extrem Venous W Compress Jeevan - 11/17/2020 2:40 pm CLINICAL HISTORY: chest pain COMPARISON: None. TECHNIQUE: Real-time sonographic evaluation of the bilateral lower extremity common femoral, superfi cial femoral, popliteal and posterior tibial veins was performed. FINDINGS: Normal compressibility, flow augmentation, phasic flow and spontaneous flow are identified in the left and right lower extremity common femoral, superficial femoral, popliteal and posterior t ibial veins. No intraluminal filling defects seen. IMPRESSION: No DVT in either lower extremity.
--- NOTE | 2020-11-17 15:15 | RAD REPORT ---
EXAM DESCRIPTION: CT - Chest For Pe Angio - 11/17/2020 3:01 pm CLINICAL HISTORY: chest pain , hemoptysis, shortness of breath, COVID positive COMPARISON: Chest For Pe Angio dated 02/24/2016; Chest Single View dated 11/17/2020 TECHNIQUE: Dynamically enhanced 3 mm thick images of the chest were obtained during administration o f approximately 150mL Isovue 370 IV contrast. Coronal and oblique MIP reconstruction images were gene rated and reviewed. Exam utilizes a protocol to evaluate the pulmonary arterial tree. All CT scans are performed using dose optimization technique as appropriate and may include automated exposure control or mA/KV adjustment according to patient size. FINDINGS: No pulmonary emboli are identified. The aorta as imaged shows no acute or suspicious finding. No pericardial thickening or effusion. Predominantly peripheral ground-glass opacities are present in the mid and lower lung pereira. Pattern is well described with COVID-19 pneumonia. No cavitation or mass. No endobronchial lesion. No pleura l effusion or pleural thickening. No mediastinal or hilar suspicious masses. No chest wall masses or abnormal axillary lymphadenopathy. IMPRESSION: No pulmonary emboli identified. Mild bilateral COVID-19 pneumonia.
--- NOTE | 2020-11-17 15:42 | ER ---
Nurse's Notes [facility] Name: Fariha Larsen Age: 35 yrs Sex: Female : 1985 Arrival Date: 11/17/2020 Time: 11:01 Bed 25 Private MD: Diagnosis: Chest pain, unspecified;Chest pain on breathing;Dyspnea;Coronavirus infection, unspecified;Pneumonia due to SARS-associated coronavirus Presentation: 11/17 12:10 Chief complaint: Patient states: Covid positive patient. Diagnosed with covid Oct 30. zb diagnosed with covid pneumonia on . patient states for the past couple of days she has been been coughing up blood. Reports she noticed bruising and soreness on her legs and calves. Coronavirus screen: Client presents with at least one sign or symptom that may indicate coronavirus-19. Standard/surgical mask placed on the client. Provider contacted for isolation considerations. Ebola Screen: No symptoms or risks identified at this time. Initial Sepsis Screen: Does the patient meet any 2 criteria? No. Patient's initial sepsis screen is negative. Does the patient have a suspected source of infection? No. Patient's initial sepsis screen is negative. Risk Assessment: Do you want to hurt yourself or someone else? Patient reports no desire to harm self or others. Onset of symptoms was November 17, 2020. 12:10 Method Of Arrival: Ambulatory zb 12:10 Acuity: FABIÁN 2 zb Triage Assessment: 12:10 General: Appears in no apparent distress. uncomfortable, Behavior is cooperative, zb anxious, Reports feeling ill for > 3 days. Pain: Complains of pain in chest, right calf and left calf Pain does not radiate. Pain currently is 5 out of 10 on a pain scale. at worst was 8 out of 10 on a pain scale. Quality of pain is described as aching, pressure, Pain began 2-3 days ago. Is intermittent. Neuro: Level of Consciousness is awake, alert, obeys commands, Oriented to person, place, time, situation, Medical Management Specialist are equal bilaterally Moves all extremities. Full function Gait is steady. Cardiovascular: Reports chest pain, shortness of breath, Heart tones S1 S2 present Capillary refill < 3 seconds in bilateral fingers Patient's skin is warm and dry. Pulses are all present. Rhythm is irregular Chest pain is described as mild, quality is pressure, is located in substernal area. Respiratory: Reports shortness of breath at rest pain with cough pain with respiration Airway is patent Respiratory effort is even, unlabored, Respiratory pattern is regular, symmetrical, Breath sounds are diminished bilaterally. the patient has moderate shortness of breath. GI: No deficits noted. Derm: Bruising that is green, yellow, on anterior aspect of left ankle and dorsum of left foot. Musculoskeletal: Range of motion: intact in all extremities. 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 - Social history:: Smoking status: unknown. - Family history:: not pertinent. Screenin:10 Abuse screen: Denies threats or abuse. Denies injuries from another. Nutritional zb screening: No deficits noted. Tuberculosis screening: No symptoms or risk factors identified. Fall Risk None identified. Assessment: 13:10 Reassessment: Patient appears in no apparent distress at this time. Patient and/or zb family updated on plan of care and expected duration. Pain level reassessed. Patient is alert, oriented x 3, equal unlabored respirations, skin warm/dry/pink. IV fluid infusing at this time. 14:00 Reassessment: Patient appears in no apparent distress at this time. Patient and/or zb family updated on plan of care and expected duration. Pain level reassessed. Patient is alert, oriented x 3, equal unlabored respirations, skin warm/dry/pink. Iv fluid infusing. 15:00 Reassessment: Patient appears in no apparent distress at this time. Patient and/or zb family updated on plan of care and expected duration. Pain level reassessed. Patient is alert, oriented x 3, equal unlabored respirations, skin warm/dry/pink. Iv fluid infusing. 16:00 Reassessment: Patient appears in no apparent distress at this time. Patient and/or zb family updated on plan of care and expected duration. Pain level reassessed. Patient is alert, oriented x 3, equal unlabored respirations, skin warm/dry/pink. 16:42 Reassessment: Patient appears in no apparent distress at this time. Patient and/or zb family updated on plan of care and expected duration. Pain level reassessed. Patient is alert, oriented x 3, equal unlabored respirations, skin warm/dry/pink. patient ambulated out. d/c instructions on IS given. no acute events at this time. gait even and steady. Vital Signs: 12:10 BP 129 / 88; Pulse 96; Resp 18; Temp 98.7; Pulse Ox 100% on R/A; Weight 72.57 kg; zb Height 5 ft. 3 in. (160.02 cm); 12:21 BP 129 / 88 RA Sitting (auto/reg); Pulse 84; Resp 18 S; Temp 98.2(TE); Pulse Ox 98% ; mb4 Weight 72.57 kg (R); Height 5 ft. 3 in. (160.02 cm) (R); 13:28 BP 127 / 95 LA Sitting (auto/reg); Pulse 81 MON; Resp 16 S; Temp 98.6(O); Pulse Ox 94% mb4 on R/A; 14:35 BP 125 / 80; Pulse 80; Resp 16; Pulse Ox 100% on R/A; zb 16:00 BP 120 / 96; Pulse 81; Resp 18; Pulse Ox 97% on R/A; zb 12:21 Body Mass Index 28.34 (72.57 kg, 160.02 cm) mb4 ED Course: 11:01 Patient arrived in ED. as 12:10 Diane Bowden, ANTONIO is Primary Nurse. zb 12:10 Alexy Alarcon MD is Attending Physician. marco antonio 12:22 EKG done, by ED staff, reviewed by Alexy Alarcon MD. mb4 12:22 Patient has correct armband on for positive identification. Placed in gown. Bed in low mb4 position. Call light in reach. Side rails up X 1. Pulse ox on. NIBP on. Assisted with dressing. 12:28 brusher hand on. mb4 12:29 Triage completed. zb 12:45 Missed attempt(s): 20 gauge in right antecubital area. Bleeding controlled, band aid mb4 applied, catheter tip intact. 12:48 Missed attempt(s): 20 gauge in left antecubital area. Bleeding controlled, band aid mb4 applied, catheter tip intact. 12:58 Initial lab(s) drawn, by me, sent to lab. Inserted saline lock: 22 gauge in right mb4 antecubital area, using aseptic technique. Blood collected. 13:11 XRAY Chest (1 view) In Process Unspecified. EDMS 13:24 DD Sent. mb4 13:24 TSH Sent. mb4 13:24 Basic Metabolic Panel Sent. mb4 13:24 CBC with Diff Sent. mb4 13:24 LFT's Sent. mb4 13:24 Magnesium Sent. mb4 13:24 NT PRO-BNP Sent. mb4 13:24 PT-INR Sent. mb4 13:24 Troponin (emerg Dept Use Only) Sent. mb4 13:35 Patient maintains SpO2 saturation greater than 95% on room air. zb 13:36 Diet: Patient given water. mb4 14:40 Extrem Venous W Compress Jeevan In Process Unspecified. EDMS 15:01 Chest For Pe Angio In Process Unspecified. EDMS 15:41 Tigre Sykes MD is Referral Physician. marco antonio 16:41 No provider procedures requiring assistance completed. IV discontinued, intact, zb bleeding controlled, No redness/swelling at site. Pressure dressing applied. 16:42 Arm band placed on. zb Administered Medications: 13:26 Drug: NS 0.9% 500 ml Route: IV; Rate: bolus; Site: right antecubital; zb 15:07 Follow up: Response: No adverse reaction; IV Status: Completed infusion; IV Intake: zb 500ml 13:26 Drug: NS 0.9% 1000 ml Route: IV; Rate: 125 ml/hr; Site: right antecubital; zb 16:40 Follow up: IV Status: Completed infusion; IV Intake: 375ml zb 15:00 Drug: Pepcid (famotidine) 20 mg Route: IVP; Site: right antecubital; zb 16:00 Follow up: Response: No adverse reaction zb 15:00 Drug: Aspirin Chewable Tablet 324 mg Route: PO; zb 16:00 Follow up: Response: No adverse reaction zb 15:00 Drug: predniSONE 60 mg Route: PO; zb 16:00 Follow up: Response: No adverse reaction zb 16:00 Drug: Zithromax (azithromycin) 500 mg Route: PO; zb 16:39 Follow up: Response: Medication administered at discharge. zb Intake: 15:07 IV: 500ml; Total: 500ml. zb 16:40 IV: 375ml; Total: 875ml. zb Outcome: 15:42 Discharge ordered by . marco antonio 16:42 Discharged to home ambulatory. zb 16:42 Condition: stable 16:42 Discharge instructions given to patient, Instructed on discharge instructions, follow up and referral plans. Demonstrated understanding of instructions, follow-up care, medications, Prescriptions given X 4. 16:43 Patient left the ED. zb Signatures: Dispatcher [employer] EDMS Alexy Alarcon MD MD cha Martinez, Amelia as Baxter, Mackenzie mb4 Diane Bowden RN RN zb
--- NOTE | 2020-11-17 15:42 | EDPHYS ---
Physician Documentation [facility] Name: Fariha Larsen Age: 35 yrs Sex: Female : 1985 Arrival Date: 11/17/2020 Time: 11:01 Bed 25 Private MD: ED Physician Alexy Alarcon HPI: 11/17 14:18 This 35 yrs old Female presents to ER via Ambulatory with complaints of Chest marco antonio Pressure, Chest Tightness. 14:18 The patient or guardian reports chest pain that is located primarily in the anterior marco antonio chest wall, bilaterally. The pain does not radiate. Associated signs and symptoms: Pertinent positives: dizziness. The chest pain is described as a pressure. Duration: The patient or guardian reports a single episode, that is still ongoing. Modifying factors: The symptoms are alleviated by nothing. the symptoms are aggravated by nothing. Severity of pain: At its worst the pain was mild in the emergency department the pain is unchanged. The patient has experienced similar episodes in the past, a few times. 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 - Social history:: Smoking status: unknown. - Family history:: not pertinent. ROS: 14:18 Constitutional: Negative for fever, chills, and weight loss, Eyes: Negative for injury, marco antonio pain, redness, and discharge, ENT: Negative for injury, pain, and discharge, Neck: Negative for injury, pain, and swelling, Cardiovascular: Negative for chest pain, palpitations, and edema, Abdomen/GI: Negative for abdominal pain, nausea, vomiting, diarrhea, and constipation, Back: Negative for injury and pain, : Negative for injury, bleeding, discharge, and swelling, MS/Extremity: Negative for injury and deformity, Skin: Negative for injury, rash, and discoloration, Neuro: Negative for headache, weakness, numbness, tingling, and seizure, Psych: Negative for depression, anxiety, suicide ideation, homicidal ideation, and hallucinations, Allergy/Immunology: Negative for hives, rash, and allergies, Endocrine: Negative for neck swelling, polydipsia, polyuria, polyphagia, and marked weight changes, Hematologic/Lymphatic: Negative for swollen nodes, abnormal bleeding, and unusual bruising. 14:18 Respiratory: Positive for cough, with no reported sputum, shortness of breath, at rest. Exam: 14:18 Constitutional: This is a well developed, well nourished patient who is awake, alert, marco antonio and in no acute distress. Head/Face: Normocephalic, atraumatic. Eyes: Pupils equal round and reactive to light, extra-ocular motions intact. Lids and lashes normal. Conjunctiva and sclera are non-icteric and not injected. Cornea within normal limits. Periorbital areas with no swelling, redness, or edema. ENT: Nares patent. No nasal discharge, no septal abnormalities noted. Tympanic membranes are normal and external auditory canals are clear. Oropharynx with no redness, swelling, or masses, exudates, or evidence of obstruction, uvula midline. Mucous membranes moist. Neck: Trachea midline, no thyromegaly or masses palpated, and no cervical lymphadenopathy. Supple, full range of motion without nuchal rigidity, or vertebral point tenderness. No Meningismus. Chest/axilla: Normal chest wall appearance and motion. Nontender with no deformity. No lesions are appreciated. Cardiovascular: Regular rate and rhythm with a normal S1 and S2. No gallops, murmurs, or rubs. Normal PMI, no JVD. No pulse deficits. Respiratory: Lungs have equal breath sounds bilaterally, clear to auscultation and percussion. No rales, rhonchi or wheezes noted. No increased work of breathing, no retractions or nasal flaring. Abdomen/GI: Soft, non-tender, with normal bowel sounds. No distension or tympany. No guarding or rebound. No evidence of tenderness throughout. Back: No spinal tenderness. No costovertebral tenderness. Full range of motion. Skin: Warm, dry with normal turgor. Normal color with no rashes, no lesions, and no evidence of cellulitis. MS/ Extremity: Pulses equal, no cyanosis. Neurovascular intact. Full, normal range of motion. Neuro: Awake and alert, GCS 15, oriented to person, place, time, and situation. Cranial nerves II-XII grossly intact. Motor strength 5/5 in all extremities. Sensory grossly intact. Cerebellar exam normal. Normal gait. Psych: Awake, alert, with orientation to person, place and time. Behavior, mood, and affect are within normal limits. 14:18 Musculoskeletal/extremity: DVT Exam: No signs of deep vein thrombosis. no pain, no swelling, no tenderness, negative Homans' sign noted on exam, no appreciated bluish discoloration, no erythema, no increased warmth. 14:58 ECG was reviewed by the Attending Physician. marco antonio Vital Signs: 12:10 BP 129 / 88; Pulse 96; Resp 18; Temp 98.7; Pulse Ox 100% on R/A; Weight 72.57 kg; zb Height 5 ft. 3 in. (160.02 cm); 12:21 BP 129 / 88 RA Sitting (auto/reg); Pulse 84; Resp 18 S; Temp 98.2(TE); Pulse Ox 98% ; mb4 Weight 72.57 kg (R); Height 5 ft. 3 in. (160.02 cm) (R); 13:28 BP 127 / 95 LA Sitting (auto/reg); Pulse 81 MON; Resp 16 S; Temp 98.6(O); Pulse Ox 94% mb4 on R/A; 14:35 BP 125 / 80; Pulse 80; Resp 16; Pulse Ox 100% on R/A; zb 16:00 BP 120 / 96; Pulse 81; Resp 18; Pulse Ox 97% on R/A; zb 12:21 Body Mass Index 28.34 (72.57 kg, 160.02 cm) mb4 MDM: 12:10 Patient medically screened. marco antonio 14:23 Differential diagnosis: abnormal EKG, acute myocardial infarction, anxiety, coronary marco antonio artery disease costochondritis, pneumonia, pulmonary embolus, stable angina, unstable angina. HEART Score: History: Slightly Suspicious (0), ECG: Normal (0), Age: < or = 45 years (0), Risk Factors: 1 or 2 risk factors (1), [+ Family HX] Troponin: < or = 1 x Normal Limit (0). The patient's deep vein thrombosis risk score was calculated as follows: Total Score: 0. This patient was found to be at low risk for a deep vein thrombosis by using the Well's assessment criteria. The patient's pulmonary embolism risk score was calculated as follows: Total Score: 0-2 points. This patient was found to be at low risk for a pulmonary embolism by using the Well's assessment criteria. GASTON Risk Score: TOTAL SCORE = 1. Data reviewed: vital signs, nurses notes, lab test result(s), EKG, radiologic studies, CT scan, plain films, ultrasound. Data interpreted: threat monitoring analyst: rate is 81 beats/min, rhythm is regular, Pulse oximetry: on room air is 94 %. Test interpretation: by ED physician or midlevel provider: ECG, plain radiologic studies. 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 11/17 12:34 Order name: Basic Metabolic Panel; Complete Time: 14:16 [facility] 11/17 12:34 Order name: CBC with Diff; Complete Time: 14:16 [facility] 11/17 12:34 Order name: LFT's; Complete Time: 14:16 [facility] 11/17 12:34 Order name: Magnesium; Complete Time: 14:16 [facility] 11/17 12:34 Order name: NT PRO-BNP; Complete Time: 14:16 [facility] 11/17 12:34 Order name: PT-INR; Complete Time: 14:16 [facility] 11/17 12:34 Order name: Troponin (emerg Dept Use Only); Complete Time: 14:16 [facility] 11/17 12:34 Order name: XRAY Chest (1 view); Complete Time: 14:16 [facility] 11/17 12:34 Order name: TSH; Complete Time: 14:16 [facility] 11/17 12:34 Order name: COVID-19 : Document "Date of Symptom Onset" if Symptomatic. [facility] 11/17 13:03 Order name: DD; Complete Time: 14:16 11/17 14:54 Order name: Urine Dipstick-Ancillary; Complete Time: 14:57 [facility] 11/17 15:20 Order name: Urine --Ancillary (enter results) 11/17 15:21 Order name: Urine --Ancillary [facility] 11/17 12:34 Order name: EKG; Complete Time: 12:35 [facility] 11/17 12:34 Order name: Cardiac monitoring; Complete Time: 13:13 [facility] 11/17 12:34 Order name: EKG - Nurse/Tech; Complete Time: 13:02 [facility] 11/17 12:34 Order name: IV Saline Lock; Complete Time: 13:02 [facility] 11/17 12:34 Order name: Labs collected and sent; Complete Time: 13:13 [facility] 11/17 12:34 Order name: O2 Per Protocol; Complete Time: 13:26 [facility] 11/17 12:34 Order name: O2 Sat Monitoring; Complete Time: 13:02 [facility] 11/17 13:52 Order name: Chest For Pe Angio; Complete Time: 15:40 [facility] 11/17 13:52 Order name: Extrem Venous W Compress Jeevan; Complete Time: 15:40 [facility] 11/17 15:50 Order name: INCENTIVE SPIROMETRY [facility] EC:58 Rate is 81 beats/min. Rhythm is regular. QRS Devine is Normal. ME interval is normal. QRS marco antonio interval is normal. QT interval is normal. No Q waves. T waves are Normal. No ST changes noted. Clinical impression: NSR w/ Non-specific ST/T Changes and No evidence of ischemia. Interpreted by me. Reviewed by me. Administered Medications: 13: Drug: NS 0.9% 500 ml Route: IV; Rate: bolus; Site: right antecubital; zb 15:07 Follow up: Response: No adverse reaction; IV Status: Completed infusion; IV Intake: zb 500ml 13: Drug: NS 0.9% 1000 ml Route: IV; Rate: 125 ml/hr; Site: right antecubital; zb 16:40 Follow up: IV Status: Completed infusion; IV Intake: 375ml zb 15:00 Drug: Pepcid (famotidine) 20 mg Route: IVP; Site: right antecubital; zb 16:00 Follow up: Response: No adverse reaction zb 15:00 Drug: Aspirin Chewable Tablet 324 mg Route: PO; zb 16:00 Follow up: Response: No adverse reaction zb 15:00 Drug: predniSONE 60 mg Route: PO; zb 16:00 Follow up: Response: No adverse reaction zb 16:00 Drug: Zithromax (azithromycin) 500 mg Route: PO; zb 16:39 Follow up: Response: Medication administered at discharge. zb Disposition Summary: 11/17/20 15:42 Discharge Ordered Location: Home [facility] Problem: new marco antonio Symptoms: have improved marco antonio Condition: Stable marco antonio Diagnosis - Chest pain, unspecified marco antonio - Chest pain on breathing marco antonio - Dyspnea marco antonio - Coronavirus infection, unspecified marco antonio - Pneumonia due to SARS-associated coronavirus marco antonio Followup: marco antonio - With: Private Physician - When: 2 - 3 days - Reason: Recheck today's complaints, Continuance of care, Re-evaluation by your physician Followup: marco antonio - With: - When: 2 - 3 days - Reason: Recheck today's complaints, Re-evaluation by your physician Discharge Instructions: - Discharge Summary Sheet marco antonio - Nonspecific Chest Pain, Adult marco antonio - Shortness of Breath, Adult marco antonio - Shortness of Breath, Adult, [id number] marco antonio - Aspirin and Your Heart [facility] - COVID-19 [facility] Forms: - Medication Reconciliation Form marco antonio - Thank You Letter [facility] - Antibiotic Education marco antonio - Prescription Opioid Use [facility] - Work release form eb Prescriptions: - albuterol sulfate 90 mcg/actuation Inhalation HFA aerosol inhaler - inhale 2 puff by INHALATION route every 6 hours; 1 Pump; Refills: 0, Product [facility] Selection Permitted - Pepcid 20 mg Oral Tablet - take 1 tablet by ORAL route every 12 hours for 15 days; 30 tablet; Refills: 0, [facility] Product Selection Permitted - Prednisone 20 mg Oral Tablet - take 2 tablets by ORAL route once daily for 5 days; 10 tablet; Refills: 0, [facility] Product Selection Permitted - Zithromax 500 mg Oral Tablet - take 1 tablet by ORAL route once daily for 5 days; 5 tablet; Refills: 0, [facility] Product Selection Permitted - ivermectin 3 mg Oral tablet - take 4 tablet by ORAL route once daily; 20 tablet; Refills: 0, Product [facility] Selection Permitted Signatures: Dispatcher [employer] Alexy Llamas MD MD cha Brown, [place], RN RN zb
[2020-11-17 16:03] LABS: Urine Specific Gravity/Preg 1.025 (1.005-1.030)
[2020-11-17] MEDS ORDERED: AZITHROMYCIN 250 MG TAB ONE (16:39)
[2020-11-17 16:51] VITALS: TEMP 98.6
[2020-11-17 16:54] VITALS: BP 120/96; O2SAT 97
== END 2020-11-17 16:43 | disposition home or self-care (01) ==
LOC: ER 10:59
DX: U07.1 COVID-19 (principal); J12.82 Pneumonia due to coronavirus disease 2019; R06.00 Dyspnea, unspecified; E03.9 Hypothyroidism, unspecified; J45.909 Unspecified asthma, uncomplicated
CPT/HCPCS: 96361; 93005; 85025; 80048; 36415; 83735; 81025; 85610; 85379; 80076; 84443; 81003; 84484; 83880; 71275; 71045; 93970; 96374; 99285; Q9967; J7512; J7030

== ENCOUNTER 2024-02-29 22:32 | Emergency (ER) | payer BC ==
[2024-02-29] MEDS ORDERED: FAMOTIDINE 20 MG/2 ML VIAL IV ONE (22:58)
[2024-02-29] MEDS ORDERED: KETOROLAC 30 MG/ML INJ ONE (22:58)
[2024-02-29] MEDS ORDERED: ONDANSETRON 4 MG/2 ML VIAL ONE (22:58)
[2024-02-29] MEDS ORDERED: NA CHLORIDE 0.9% 1,000 ML ONE (22:59)
[2024-02-29 23:14] LABS: Absolute Basophils 0.1 K/uL (0-0.5); Absolute Eosinophils 0.2 K/uL (0-0.5); Basophils % 0.4 % (0-1.3); Hematocrit 40.9 % (36.0-45.0); Hemoglobin 13.1 g/dL (12.0-15.0); Lymphocytes % 15.6 % (15.3-44.8); MCH 26.4 pg (27.0-35.0); MCHC 31.9 g/dL (32.0-36.0); MCV 82.6 fL (80-100); Monocytes % 5.3 % (3.3-12.3); Neutrophils % 77.7 % (41.7-73.7); Platelets 263 thou/uL (152-406); RBC Red Blood Cell Count 4.95 M/uL (3.86-4.86); Red Cell Distribution Width 14.8 % (12.1-15.2)
[2024-02-29 23:15] LABS: Specific Gravity > 1.030 (1.005-1.030); Sqamous Epithelial <5 /HPF (None Seen); Urine Bacteria <20 /HPF (<20); Urine Bilirubin NEGATIVE (Negative); Urine Blood Negative (Negative); Urine Clarity Extremely Turbid (Clear); Urine Color Yellow (Yellow); Urine Culture Reflex Order NOT NEEDED; Urine Glucose NEGATIVE (Negative); Urine Ketones NEGATIVE (Negative); Urine Microscopic Reflex YN ORDER UMIC; Urine Mucus Slight /HPF (None Seen); Urine Nitrite NEGATIVE (Negative); Urine Protein TRACE (Negative); Urine RBC None Seen /HPF (None Seen); Urine Urobilinogen Normal (Normal); Urine WBC <5 /HPF (<5)
[2024-02-29 23:26] LABS: Albumin 3.9 g/dL (3.4-5.0); Albumin/Globulin Ratio 1.1 (1.1-1.8); Anion Gap 14.9 mEq/L (5.0-15.0); Bilirubin Total 0.2 mg/dL (0.2-1.0); Globulin 3.7 g/dL (2.3-3.5); Potassium 3.9 mEq/L (3.5-5.1); Protein, Total 7.6 g/dL (6.4-8.2)
[2024-03-01] MEDS ORDERED: DICYCLOMINE HCL 10 MG CAP ONE (00:31)
[2024-03-01] MEDS ORDERED: PROMETHAZINE INJ 25 MG/ML AMP ONE (00:31)
--- NOTE | 2024-03-01 01:00 | EDPHYS ---
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 Denies diarrhea, fever. No aggravating or alleviating factors. . 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 - Infectious Disease History:: Denies. - Social history:: Smoking status: Patient denies any tobacco usage or history of. Patient uses alcohol, but reports only rare drinking. Patient/guardian denies using street drugs. ROS: 22:42 Constitutional: As per HPI kb Exam: 22:42 Constitutional: This is a well developed, well nourished patient who is awake, alert, kb and in no acute distress. Head/Face: Normocephalic, atraumatic. ENT: Moist Mucous membranes Cardiovascular: Regular rate Respiratory: Respirations even and unlabored. No increased work of breathing. Talking in full sentences Skin: Warm, dry with normal turgor. Normal color. MS/ Extremity: Pulses equal, no cyanosis. Neurovascular intact. Full, normal range of motion. Neuro: Awake and alert, GCS 15, oriented to person, place, time, and situation. 22:42 Abdomen/GI: Inspection: abdomen appears normal, Bowel sounds: normal, Palpation: soft, in all quadrants, moderate abdominal tenderness, in the right lower quadrant, Vital Signs: 22:45 BP 139 / 105; Pulse 104; Resp 20; Temp 99.1; Pulse Ox 99% ; Pain 10/10; bm8 23:30 BP 125 / 89; Pulse 98; Resp 17; Temp 99.1; Pulse Ox 97% ; Pain 0/10; bm8 03/01 00:00 BP 121 / 74; Pulse 105; Resp 17; Temp 99.1; Pulse Ox 97% ; Pain 7/10; bm8 01:09 BP 128 / 91; Pulse 100; Resp 18; Temp 98.8; Pulse Ox 97% on R/A; Pain 3/10; bm8 02/28 22:45 Pain Scale: Adult bm8 23:30 Pain Scale: Adult bm8 03/01 00:00 Pain Scale: Adult bm8 01:09 Pain Scale: Adult bm8 Madelyn Coma Score: 02/28 23:19 Eye Response: spontaneous(4). Motor Response: obeys commands(6). Verbal Response: bm8 oriented(5). Total: 15. 23:30 Eye Response: spontaneous(4). Motor Response: obeys commands(6). Verbal Response: bm8 oriented(5). Total: 15. 03/01 00:00 Eye Response: spontaneous(4). Motor Response: obeys commands(6). Verbal Response: bm8 oriented(5). Total: 15. MDM: 02/28 22:37 Medical Screening Exam initiated kb 22:42 Data reviewed: vital signs, nurses notes. 03/01 00:41 Differential diagnosis: Nonspecific abd pain, appendicitis, pyelonephritis, uti. kb 00:59 Counseling: I had a detailed discussion with the patient and/or guardian regarding the kb historical points, exam findings, and any diagnostic results supporting the discharge/admit diagnosis, lab results, radiology results, the need for outpatient follow up, a family practitioner, to return to the emergency department if symptoms worsen or persist or if there are any questions or concerns that arise at home. Response to treatment: the patient's symptoms have markedly improved after treatment. ED course: Pt educated on diagnostic results and strict return precautions. Verbal understanding received. . 02/28 22:42 Order name: CBC with Diff; Complete Time: 23:17 kb 02/28 22:42 Order name: CMP; Complete Time: 23:30 kb 02/28 22:42 Order name: Lipase; Complete Time: 23:30 kb 02/28 22:42 Order name: Urinalysis w/ reflexes; Complete Time: 23:17 kb 02/28 22:57 Order name: Test, Serum; Complete Time: 23:30 bm8 02/28 22:42 Order name: CT Abd/Pelvis - IV Contrast Only kb 02/28 22:42 Order name: IV Saline Lock; Complete Time: 23:06 kb 02/28 22:42 Order name: Labs collected and sent; Complete Time: 23:06 kb Administered Medications: 02/28 23:05 Drug: Famotidine IVP 20 mg IVP once; dilute with 10 mL 0.9% NaCl; give over 2 minutes bm8 Route: IVP; Site: left antecubital; 23:37 Follow up: Response: No adverse reaction bm8 23:06 Drug: TORadol - Ketorolac IVP 15 mg IVP once Route: IVP; Site: left antecubital; bm8 23:38 Follow up: Response: No adverse reaction bm8 23:06 Drug: Ondansetron IVP 4 mg IVP once; over 2 minutes Route: IVP; Site: left antecubital; bm8 23:37 Follow up: Response: No adverse reaction bm8 23:06 Drug: NS 0.9% IV 1000 ml IV at 1 bolus Per protocol; to be given as a bolus over 60 bm8 minutes Route: IV; Rate: 1 bolus; Site: left antecubital; 03/01 00:35 Follow up: Response: No adverse reaction; IV Status: Completed infusion; IV Intake: bm8 1000ml 00:35 Drug: Promethazine IVP 12.5 mg IVP once Route: IVP; Site: left antecubital; bm8 01:08 Follow up: Response: No adverse reaction bm8 00:35 Drug: Dicyclomine PO 20 mg PO once Route: PO; bm8 01:08 Follow up: Response: No adverse reaction bm8 Disposition: 06:47 Co-signature as Attending Physician, Alex Sidhu MD I agree with the assessment sp4 and plan of care. I reviewed the patient's care provided by the Advanced Practice Provider and agree with the diagnosis and treatment plan. Disposition Summary: 03/01/24 01:00 Discharge Ordered Notes: Location: Home kb Condition: Stable kb Diagnosis - Lower abdominal pain, unspecified kb - Diarrhea, unspecified kb - Nausea with vomiting, unspecified kb Followup: kb - With: Emergency Department - When: As needed - Reason: Worsening of condition Followup: kb - With: Private Physician - When: 2 - 3 days - Reason: Recheck today's complaints, Continuance of care, Re-evaluation by your physician Discharge Instructions: - Discharge Summary Sheet kb - Food Choices to Help Relieve Diarrhea, Adult kb - Nausea and Vomiting, Adult, [id number] kb - Abdominal Pain, Adult, [id number] kb - Diarrhea, Adult, [id number] kb Forms: - Medication Reconciliation Form kb - Antibiotic Education kb - Prescription Opioid Use kb - Patient Portal Instructions kb - Leadership Thank You Letter kb Prescriptions: - Zofran 4 mg Oral tablet - take 1 tablet ORAL route every 6 hours As needed; 20 tablet; Refills: 0, kb Product Selection Permitted - dicyclomine 20 mg Oral tablet - take 1 tablet ORAL route 4 times per day As needed; 20 tablet; Refills: 0, kb Product Selection Permitted Signatures: Dispatcher [employer] EDMS Leanne Parsons, AUTO MOTOR MECHANIC-C AUTO MOTOR MECHANIC-Alex Meyers MD MD sp4 Gadiel Tenorio RN RN bm8 Corrections: (The following items were deleted from the chart) 02/28 22:42 22:42 Abdomen Pelvis W Con+CT.RAD.BRZ ordered. EDMS EDMS 23:06 22:42 Test, Urine+UC.LAB.BRZ ordered. EDMS EDMS
--- NOTE | 2024-03-01 01:00 | ER ---
Nurse's Notes [facility] Name: Fariha Larsen Age: 38 yrs Sex: Female : 1985 Arrival Date: 02/29/2024 Time: 22:32 Bed 18 Private MD: Diagnosis: Lower abdominal pain, unspecified;Diarrhea, unspecified;Nausea with vomiting, unspecified Presentation: 02/28 22:45 Chief complaint: Patient states: At 8pm tonight I just started throwing up and I cant bm8 stop. I think i have thrown up 14 times since 8pm. My stomach really hurts. Coronavirus screen: Vaccine status: Patient reports receiving the 2nd dose of the covid vaccine. At this time, the client does not indicate any symptoms associated with coronavirus-19. Ebola Screen: Patient negative for fever greater than or equal to 101.5 degrees Fahrenheit, and additional compatible Ebola Virus Disease symptoms Patient denies exposure to infectious person. Patient denies travel to an Ebola-affected area in the 21 days before illness onset. No symptoms or risks identified at this time. 22:45 Method Of Arrival: Wheelchair bm8 22:45 Initial Sepsis Screen: Does the patient meet any 2 criteria? No. Patient's initial bm8 sepsis screen is negative. Does the patient have a suspected source of infection? No. Patient's initial sepsis screen is negative. Risk Assessment: Do you want to hurt yourself or someone else? Patient reports no desire to harm self or others. Onset of symptoms was February 29, 2024 at 20:00. 22:45 Acuity: FABIÁN 3 bm8 Triage Assessment: 22:45 General: Appears uncomfortable, Behavior is calm, cooperative, appropriate for age. bm8 22:45 Pain: Complains of pain in umbilical area, right lower quadrant and left lower quadrant bm8 Pain currently is 10 out of 10 on a pain scale. Quality of pain is described as crampy, sharp. EENT: No deficits noted. No signs and/or symptoms were reported regarding the EENT system. Neuro: No deficits noted. Level of Consciousness is awake, alert, obeys commands, Oriented to person, place, time, situation, Appropriate for age. Cardiovascular: Denies chest pain, Capillary refill < 3 seconds in bilateral fingers Patient's skin is warm and dry. Respiratory: Airway is patent Respiratory effort is even, unlabored, Respiratory pattern is regular, symmetrical. GI: Abdomen is round non-distended, Last BM at 23:19. Bowel sounds present X 4 quads. Abdomen is tender to palpation in umbilical area, right lower quadrant and left lower quadrant Reports lower abdominal pain, nausea, Pain is 10 out of 10 on a pain scale. 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 - Infectious Disease History:: Denies. - Social history:: Smoking status: Patient denies any tobacco usage or history of. Patient uses alcohol, but reports only rare drinking. Patient/guardian denies using street drugs. Screenin:19 [facility] ED Fall Risk Assessment (Adult) History of falling in the last 3 months, bm8 including since admission No falls in past 3 months (0 pts) Confusion or Disorientation No (0 pts) Intoxicated or Sedated No (0 pts) Impaired Gait No (0 pts) Mobility Assist Device Used No (0 pt) Altered Elimination No (0 pt) Score/Fall Risk Level 0 - 2 = Low Risk Oriented to surroundings, Maintained a safe environment, Educated pt \T\ family on fall prevention, incl call for assistance when getting out of bed, Assessed \T\ reinforced patient's understanding of fall precautions, Hourly rounding (assess needs \T\ fall precautionary measures) done, Used ambulatory aids as needed (educated on \T\ assisted with), Used gait belt as appropriate. Abuse screen: Denies threats or abuse. Nutritional screening: No deficits noted. Tuberculosis screening: No symptoms or risk factors identified. Assessment: 23:19 General: see triage assessment. bm8 23:30 General: Appears in no apparent distress. comfortable, Behavior is calm, cooperative, bm8 appropriate for age. Pain: Complains of pain in left lower quadrant and umbilical area and right lower quadrant Pain currently is 7 out of 10 on a pain scale. Neuro: No deficits noted. Cardiovascular: No deficits noted. Respiratory: No deficits noted. GI: Abdomen is round non-distended, Bowel sounds present X 4 quads. hyperactive in right upper quadrant, left upper quadrant, right lower quadrant and left lower quadrant Abdomen is tender to palpation in umbilical area, right lower quadrant and left lower quadrant. : No signs and/or symptoms were reported regarding the genitourinary system. EENT: No signs and/or symptoms were reported regarding the EENT system. Derm: No signs and/or symptoms reported regarding the dermatologic system. Musculoskeletal: No signs and/or symptoms reported regarding the musculoskeletal system. 03/01 00:00 Reassessment: Patient appears in no apparent distress at this time. No changes from bm8 previously documented assessment. Patient and/or family updated on plan of care and expected duration. Pain level reassessed. Patient is alert, oriented x 3, equal unlabored respirations, skin warm/dry/pink. Patient states symptoms have improved. 01:09 Reassessment: Patient appears in no apparent distress at this time. Patient and/or bm8 family updated on plan of care and expected duration. Pain level reassessed. Patient is alert, oriented x 3, equal unlabored respirations, skin warm/dry/pink. Patient states feeling better. Patient states symptoms have improved. Vital Signs: 02/28 22:45 BP 139 / 105; Pulse 104; Resp 20; Temp 99.1; Pulse Ox 99% ; Pain 10/10; bm8 23:30 BP 125 / 89; Pulse 98; Resp 17; Temp 99.1; Pulse Ox 97% ; Pain 0/10; bm8 03/01 00:00 BP 121 / 74; Pulse 105; Resp 17; Temp 99.1; Pulse Ox 97% ; Pain 7/10; bm8 01:09 BP 128 / 91; Pulse 100; Resp 18; Temp 98.8; Pulse Ox 97% on R/A; Pain 3/10; bm8 02/28 22:45 Pain Scale: Adult bm8 23:30 Pain Scale: Adult bm8 03/01 00:00 Pain Scale: Adult bm8 01:09 Pain Scale: Adult bm8 Madelyn Coma Score: 02/28 23:19 Eye Response: spontaneous(4). Motor Response: obeys commands(6). Verbal Response: bm8 oriented(5). Total: 15. 23:30 Eye Response: spontaneous(4). Motor Response: obeys commands(6). Verbal Response: bm8 oriented(5). Total: 15. 12 00:00 Eye Response: spontaneous(4). Motor Response: obeys commands(6). Verbal Response: bm8 oriented(5). Total: 15. ED Course: 02/28 22:34 Patient arrived in ED. [id number] 22:36 Gadiel Tenorio, RN is Primary Nurse. bm8 22:36 Leanne Parsons FNP-C is PHCP. kb 22:36 Alex Sidhu MD is Attending Physician. kb 22:45 Arm band placed on right wrist. bm8 23:08 Radiology exam delayed due to lab results not completed at this time. (HCG) ls3 (BUN/Creatinine) test not completed at this time. 23:13 Triage completed. bm8 23:19 Patient has correct armband on for positive identification. Placed in gown. Bed in low bm8 position. Call light in reach. Side rails up X2. Adult w/ patient. Client placed on continuous cardiac and pulse oximetry monitoring. NIBP monitoring applied. Pulse ox on. NIBP on. Door closed. Noise minimized. Verbal reassurance given. Head of bed elevated. 23:19 No provider procedures requiring assistance completed. Initial lab(s) drawn, by , bmTing sent to lab. Urine collected: clean catch specimen, clear. Inserted saline lock: 20 gauge in left antecubital area, using aseptic technique. Blood collected. Flushed with 10 mL NS. Patient maintains SpO2 saturation greater than 95% on room air. 23:57 CT Abd/Pelvis - IV Contrast Only In Process Unspecified. EDMS 03/01 01:11 Provided Education on: post er care. bm8 01:11 IV discontinued, intact, bleeding controlled, No redness/swelling at site. Pressure bm8 dressing applied. Administered Medications: 02/28 23:05 Drug: Famotidine IVP 20 mg IVP once; dilute with 10 mL 0.9% NaCl; give over 2 minutes bm8 Route: IVP; Site: left antecubital; 23:37 Follow up: Response: No adverse reaction bm8 23:06 Drug: TORadol - Ketorolac IVP 15 mg IVP once Route: IVP; Site: left antecubital; bm8 23:38 Follow up: Response: No adverse reaction bm8 23:06 Drug: Ondansetron IVP 4 mg IVP once; over 2 minutes Route: IVP; Site: left antecubital; bm8 23:37 Follow up: Response: No adverse reaction bm8 23:06 Drug: NS 0.9% IV 1000 ml IV at 1 bolus Per protocol; to be given as a bolus over 60 bm8 minutes Route: IV; Rate: 1 bolus; Site: left antecubital; 03/01 00:35 Follow up: Response: No adverse reaction; IV Status: Completed infusion; IV Intake: bm8 1000ml 00:35 Drug: Promethazine IVP 12.5 mg IVP once Route: IVP; Site: left antecubital; bm8 01:08 Follow up: Response: No adverse reaction bm8 00:35 Drug: Dicyclomine PO 20 mg PO once Route: PO; bm8 01:08 Follow up: Response: No adverse reaction bm8 Medication: 02/28 23:19 VIS not applicable for this client. bm8 Intake: 03/01 00:35 IV: 1000ml; Total: 1000ml. bm8 Outcome: 01:00 Discharge ordered by . kb 01:11 Discharged to home ambulatory, bm8 01:11 Condition: stable 01:11 Discharge instructions given to patient, family, Instructed on discharge instructions, follow up and referral plans. no drinking with medication, no driving heavy equipment, medication usage, safety practices, Demonstrated understanding of instructions, follow-up care, medications, 01:12 Patient left the ED. bm8 Signatures: Dispatcher [employer] EDMS Leanne Parsons, DEB SPRING-Nadeen Mckeon3 Diamond [id number] Gadiel Tenorio, RN RN bm8 Corrections: (The following items were deleted from the chart) 01:10 01:09 Reassessment: Patient appears in no apparent distress at this time. Patient bm8 and/or family updated on plan of care and expected duration. Pain level reassessed. Patient is alert, oriented x 3, equal unlabored respirations, skin warm/dry/pink. Patient denies pain at this time. Patient states feeling better. Patient states symptoms have improved. bm8
--- NOTE | 2024-03-01 01:09 | RAD REPORT ---
EXAM DESCRIPTION: CT ABDOMEN PELVIS WITH IV CONTRAST CLINICAL HISTORY: ABD PAIN COMPARISON: None Available TECHNIQUE: Contiguous axial images of the abdomen and pelvis were obtained after the administration of intraveno us contrast followed by reconstruction images. This exam was performed according to our departmental dose-optimization program, which includes automated exposure control, adjustment of the mA and/or kV according to patient size and/or use of iterative reconstruction technique. FINDINGS: There is a horseshoe kidney. There is no hydronephrosis. Air-fluid levels within the colon could be s econdary to a diarrheal state. There is an intrauterine device. There is a small hiatal hernia. The liver, spleen, pancreas are within normal limits. There is no hydronephrosis or renal stones. The gallbladder is unremarkable by CT criteria. Adrenal glands are within normal limits. Aorta is of normal caliber and tapering. There is no free fluid in the abdomen or pelvis. There is no stranding o f the mesenteric fat to suggest an inflammatory response. There is no bowel obstruction. The appendix is within normal limits. There is no pericecal inflammation. IMPRESSION: Air-fluid levels within the colon could be secondary to a diarrheal state. Electronically signed by: Phong Bartholomew MD 03/01/2024 12:10 AM [facility] Due to temporary technical issues with the PACS/nivio reporting system, reports are being abner d by the in-house radiologist without review as a courtesy to ensure prompt reporting the interpreting radiologist is fully responsible for the content of the report. Transcribed Date/Time: 03/01/2024 1:09 AM
[2024-03-01 07:34] VITALS: O2SAT 97
[2024-03-01 07:37] VITALS: BP 128/91; TEMP 98.8
== END 2024-03-01 01:12 | disposition home or self-care (01) ==
LOC: ER 22:32
DX: R10.31 Right lower quadrant pain (principal); R19.7 Diarrhea, unspecified; R11.2 Nausea with vomiting, unspecified; E03.9 Hypothyroidism, unspecified
CPT/HCPCS: 96361; 85025; 81001; 36415; 84703; 83690; 80053; 74177; 96375; 96374; 99284; Q9967; J2550; J2405; J7030

== ENCOUNTER 2024-05-29 07:19 | Emergency (ER) | payer BC ==
[2024-05-29] MEDS ORDERED: ONDANSETRON 4 MG/2 ML VIAL ONE (07:41)
[2024-05-29] MEDS ORDERED: FAMOTIDINE 20 MG/2 ML VIAL IV ONE (07:41)
[2024-05-29] MEDS ORDERED: NA CHLORIDE 0.9% 1,000 ML ONE (07:42)
[2024-05-29] MEDS ORDERED: MORPHINE 4 MG/ML SYR ONE (08:01)
[2024-05-29 08:14] LABS: Absolute Eosinophils 0.2 K/uL (0-0.5); Absolute Lymphocytes (CBC) 0.9 K/uL (0.7-4.9); Absolute Monocytes 0.7 K/uL (0.1-1.3); Absolute Neutrophil 11.5 K/uL (1.8-8.0); Basophils % 0.1 % (0-1.3); Eosinophils % 1.8 % (0-4.4); Hematocrit 42.1 % (36.0-45.0); Hemoglobin 14.1 g/dL (12.0-15.0); Lymphocytes % 6.4 % (15.3-44.8); MCHC 33.4 g/dL (32.0-36.0); MCV 80.9 fL (80-100); MPV 10.4 fL (7.6-11.3); Monocytes % 5.3 % (3.3-12.3); Neutrophils % 86.4 % (41.7-73.7); Platelets 200 thou/uL (152-406); Red Cell Distribution Width 14.1 % (12.1-15.2)
[2024-05-29 08:23] LABS: Albumin 4.2 g/dL (3.4-5.0); Albumin/Globulin Ratio 1.2 (1.1-1.8); Anion Gap 9.9 mEq/L (5.0-15.0); Bilirubin Total 0.5 mg/dL (0.2-1.0); Globulin 3.6 g/dL (2.3-3.5); Potassium 3.9 mEq/L (3.5-5.1); Protein, Total 7.8 g/dL (6.4-8.2)
[2024-05-29] MEDS ORDERED: KETOROLAC 30 MG/ML INJ ONE (09:25)
[2024-05-29 09:36] LABS: Blood Morphology Comment NOT SEEN (NOT SEEN); Platelet Estimate ADEQ; White Blood Cell Scan OK (OK)
--- NOTE | 2024-05-29 09:39 | RAD REPORT ---
EXAMINATION: CT ABDOMEN AND PELVIS WITH CONTRAST CLINICAL INDICATION: ABD PAIN TECHNIQUE: CT abdomen and pelvis was performed, after the administration of IV contrast, as per [facility] protocol. Axial, sagittal and coronal reconstructions were obtained. One or more of the following dose reduction techniques were used: Automated exposure control, adjustment of the mA and k V according to patient size, and iterative reconstruction. Unless otherwise specified, incidental findings do not require dedicated imaging follow-up. COMPARISON: 02/29/2024 FINDINGS: LOWER CHEST: The visualized lung bases are clear. LIVER: Normal in size and contour. No focal lesion. Grossly unremarkable gallbladder. SPLEEN: Normal size. No focal lesion. PANCREAS: No mass, ductal dilation, or zeus-pancreatic fluid. ADRENALS: Normal; no mass. KIDNEYS: Horseshoe kidney. No hydronephrosis. GASTROINTESTINAL TRACT: No evidence of free air, significant intra-abdominal free fluid, bowel obstru ction or abscess. APPENDIX: Normal appendix. LYMPH NODES: No lymphadenopathy. MUSCULOSKELETAL: No acute or suspicious osseous abnormality. ADDITIONAL FINDINGS: Small fat-containing umbilical hernia. IMPRESSION: No acute or concerning abnormalities seen in the abdomen or pelvis. Horseshoe kidney. Small fat-containing umbilical hernia.
[2024-05-29 11:23] LABS: Specific Gravity > 1.030 (1.005-1.030); Sqamous Epithelial <5 /HPF (None Seen); Urine Bacteria None Seen /HPF (<20); Urine Bilirubin NEGATIVE (Negative); Urine Blood Negative (Negative); Urine Clarity Clear (Clear); Urine Color Colorless (Yellow); Urine Culture Reflex Order NOT NEEDED; Urine Glucose NEGATIVE (Negative); Urine Ketones NEGATIVE (Negative); Urine Microscopic Reflex YN ORDER UMIC; Urine Nitrite NEGATIVE (Negative); Urine Protein NEGATIVE (Negative); Urine RBC <5 /HPF (None Seen); Urine Urobilinogen Normal (Normal); Urine WBC <5 /HPF (<5); Urine pH 6.5 (5.0-7.0)
--- NOTE | 2024-05-29 11:47 | EDPHYS ---
Physician Documentation [facility] Name: Fariha Larsen Age: 38 yrs Sex: Female : 1985 Arrival Date: 05/29/2024 Time: 07:19 Bed 16 Private MD: ED Physician Wojciech Murphy HPI: 05/29 10:03 This 38 yrs old Female presents to ER via Wheelchair with complaints of Back Pain, ms3 Abdominal Pain, Vomiting. 10:03 38-year-old female with past medical history of asthma, hypothyroidism [place] [facility] [place] for nausea and vomiting that began at 2 AM. Patient states she had 3 episodes of vomiting. She endorses diarrhea. Patient states she had similar symptoms that occurred in February she received medications and went home.. NEWS INTERN: 07:36 LMP 05/12/2024, unknown aa5 Historical: - Allergies: 07:34 NKDA; aa5 - PMHx: 07:34 Asthma; Hypothyroidism; aa5 - PSHx: 07:34 section; Skin grafting; aa5 - Immunization history:: Adult Immunizations unknown. - Infectious Disease History:: Denies. - Social history:: Smoking status: Patient denies any tobacco usage or history of. ROS: 10:03 Constitutional: Negative for fever, and chills. Cardiovascular: Negative for chest ms3 pain, and palpitations. Respiratory: Negative for shortness of breath, cough, wheezing, and pleuritic chest pain, 10:03 Abdomen/GI: Positive for nausea, vomiting, and diarrhea, Exam: 10:03 Constitutional: This is a well developed, well nourished patient who is awake, alert, ms3 and in no acute distress. Neck: Trachea midline, no cervical lymphadenopathy. Supple, full range of motion without nuchal rigidity, or vertebral point tenderness. No Meningismus. Cardiovascular: Regular rate and rhythm with a normal S1 and S2. No gallops, murmurs, or rubs. Normal PMI, no JVD. No pulse deficits. Respiratory: Lungs have equal breath sounds bilaterally, clear to auscultation and percussion. No rales, rhonchi or wheezes noted. No increased work of breathing, no retractions or nasal flaring. Abdomen/GI: Soft, non-tender, with normal bowel sounds. No distension or tympany. No guarding or rebound. No evidence of tenderness throughout. Skin: Warm, dry with normal turgor. Normal color with no rashes, no lesions, and no evidence of cellulitis. MS/ Extremity: Pulses equal, no cyanosis. Neurovascular intact. Full, normal range of motion. Vital Signs: 07:34 BP 144 / 108; Pulse 88; Resp 19 S; Temp 97.9(O); Pulse Ox 96% on R/A; Weight 81.65 kg aa5 (R); Height 5 ft. 4 in. (R); 09:00 BP 114 / 90; Pulse 76; Resp 18; Pulse Ox 98% on R/A; ph 10:16 BP 107 / 72; Pulse 78; Resp 18; Pulse Ox 95% on R/A; ph 11:20 BP 112 / 87; Pulse 75; Resp 18; Pulse Ox 98% on R/A; ph 12:27 BP 107 / 78; Pulse 76; Resp 18; Temp 97.5(O); Pulse Ox 100% on R/A; ph 07:34 Body Mass Index 30.90 (81.65 kg, 162.56 cm) aa5 MDM: 07:40 Medical Screening Exam initiated ms3 10:05 Differential diagnosis: bowel obstruction, gastritis, non-specific abd pain. ms3 13:10 Data reviewed: vital signs, nurses notes, lab test result(s), radiologic studies, and ms3 as a result, I will discharge patient. I considered the following discharge prescriptions or medication management in the emergency department Medications were administered in the Emergency Department. See MAR. Counseling: I had a detailed discussion with the patient and/or guardian regarding the historical points, exam findings, and any diagnostic results supporting the discharge/admit diagnosis, lab results, radiology results, the need for outpatient follow up, to return to the emergency department if symptoms worsen or persist or if there are any questions or concerns that arise at home. Special discussion: I discussed with the patient/guardian in detail that at this point there is no indication for admission to the hospital. It is understood, however, that if the symptoms persist or worsen the patient needs to return immediately for re-evaluation. ED course: Discussed labs and imaging with the patient and her mother. Patient to follow-up with primary care physician in 2 to 3 days. Patient understands and agrees with plan. All questions were answered. Return precautions discussed include worsening symptoms, or any other concerns. On reevaluation patient symptoms are improved, patient is alert and oriented x 4, in no apparent distress, nontoxic-appearing, speaking full sentences. 05/29 07:26 Order name: CBC with Diff; Complete Time: 09:59 ms3 05/29 07:26 Order name: CMP; Complete Time: 09:59 ms3 05/29 07:26 Order name: Lipase; Complete Time: 09:59 ms3 05/29 07:26 Order name: Test, Serum; Complete Time: 09:59 ms3 05/29 07:26 Order name: Urinalysis w/ reflexes; Complete Time: 11:32 ms3 05/29 08:22 Order name: CBC Smear Scan; Complete Time: 09:59 EDMS 05/29 07:41 Order name: CT Abd/Pelvis - IV Contrast Only; Complete Time: 09:59 ms3 05/29 07:26 Order name: IV Saline Lock; Complete Time: 08:02 ms3 05/29 07:26 Order name: Labs collected and sent; Complete Time: 08:02 ms3 Administered Medications: 08:11 Drug: Famotidine IVP 20 mg IVP once; dilute with 10 mL 0.9% NaCl; give over 2 minutes ph Route: IVP; Site: left forearm; 08:30 Follow up: Response: No adverse reaction ph 08:11 Drug: NS 0.9% IV 1000 ml IV at 1 bolus Per protocol; to be given as a bolus over 60 ph minutes Route: IV; Rate: 1 bolus; Site: left forearm; 09:30 Follow up: Response: No adverse reaction; IV Status: Completed infusion; IV Intake: ph 1000ml 08:12 Drug: Ondansetron IVP 4 mg IVP once; over 2 minutes Route: IVP; Site: left forearm; ph 09:00 Follow up: Response: No adverse reaction ph 08:12 Drug: morphine IVP or IV 4 mg IVP once over 4 mins Route: IVP; Infused Over: 4 mins; ph Site: left forearm; 08:30 Follow up: Response: No adverse reaction ph 09:40 Drug: Ketorolac IVP 10 mg 10 mg IVP once Route: IVP; Site: left forearm; ph 10:00 Follow up: Response: No adverse reaction ph 12:27 Drug: Dicyclomine IM 20 mg IM once Route: IM; Site: left gluteus; ph 12:30 Follow up: Response: No adverse reaction; Medication administered at discharge. ph 12:27 Drug: Promethazine IM 12.5 mg IM once Route: IM; Site: left deltoid; ph 12:30 Follow up: Response: No adverse reaction; Medication administered at discharge. ph Disposition Summary: 05/29/24 11:47 Discharge Ordered Notes: Location: Home ms3 Condition: Stable ms3 Diagnosis - Abdominal pain, Generalized ms3 - Nausea with vomiting, unspecified ms3 Followup: ms3 - With: Private Physician - When: 2 - 3 days - Reason: Recheck today's complaints Discharge Instructions: - Discharge Summary Sheet ms3 - Abdominal Pain, Adult ms3 - Nausea and Vomiting, Adult ms3 Forms: - Work release form ph - Medication Reconciliation Form ms3 - Antibiotic Education ms3 - Prescription Opioid Use ms3 - Patient Portal Instructions ms3 - Leadership Thank You Letter ms3 Prescriptions: - ondansetron 4 mg Oral Tablet,disintegrating - take 1 tablet ORAL route every 8 hours for 4 days; 15 tablet; Refills: 0, ms3 Product Selection Permitted - dicyclomine 10 mg Oral capsule - take 2 capsules ORAL route 3 times per day; 15 capsule; Refills: 0, Product ms3 Selection Permitted Signatures: Dispatcher [employer] Bea Clark, RN RN aaNatalya Cristobal RN RN ph Wojciech Murphy, DO ms3
--- NOTE | 2024-05-29 11:47 | ER ---
Nurse's Notes [facility] Name: Fariha Larsen Age: 38 yrs Sex: Female : 1985 Arrival Date: 05/29/2024 Time: 07:19 Bed 16 Private MD: Diagnosis: Abdominal pain, Generalized;Nausea with vomiting, unspecified Presentation: 05/29 07:34 Chief complaint: Patient states: lower abd pain radiating to back and vomiting that aa5 began around 0200 today. Coronavirus screen: vomiting. Ebola Screen: Patient denies travel to an Ebola-affected area in the 21 days before illness onset. Initial Sepsis Screen: Does the patient meet any 2 criteria? No. Patient's initial sepsis screen is negative. Does the patient have a suspected source of infection? No. Patient's initial sepsis screen is negative. Risk Assessment: Do you want to hurt yourself or someone else? Patient reports no desire to harm self or others. Onset of symptoms was May 29, 2024. 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 - Infectious Disease History:: Denies. - Social history:: Smoking status: Patient denies any tobacco usage or history of. Screenin:16 [facility] ED Fall Risk Assessment (Adult) History of falling in the last 3 months, ph including since admission No falls in past 3 months (0 pts) Confusion or Disorientation No (0 pts) Intoxicated or Sedated No (0 pts) Impaired Gait No (0 pts) Mobility Assist Device Used No (0 pt) Altered Elimination No (0 pt) Score/Fall Risk Level 0 - 2 = Low Risk Oriented to surroundings, Maintained a safe environment, Hourly rounding (assess needs \T\ fall precautionary measures) done. Abuse screen: Denies threats or abuse. Denies injuries from another. Nutritional screening: No deficits noted. Tuberculosis screening: No symptoms or risk factors identified. Assessment: 08:12 Reassessment: Pt c/o pain 11/05, Dr Murphy notified, verbal order received for 4 mg ph Morphine IVP,see MAY. 08:15 General: Appears in no apparent distress. uncomfortable, Behavior is cooperative, ph appropriate for age, anxious. Pain: Complains of pain in right lower quadrant Pain radiates to back. Neuro: Level of Consciousness is awake, alert, obeys commands, Oriented to person, place, time, situation. Cardiovascular: Capillary refill < 3 seconds in bilateral fingers Patient's skin is warm and dry. Respiratory: Airway is patent Respiratory effort is even, unlabored. GI: Abdomen is round Bowel sounds present X 4 quads. Reports lower abdominal pain, bloating, diarrhea, nausea, vomiting. Derm: Skin is pink, warm \T\ dry. 10:15 Reassessment: Patient appears in no apparent distress at this time. Patient and/or ph family updated on plan of care and expected duration. Pain level reassessed. 12:27 Reassessment: Pt c/o nausea after IV d/c, Dr Murphy notified, see MAY. ph Vital Signs: 07:34 BP 144 / 108; Pulse 88; Resp 19 S; Temp 97.9(O); Pulse Ox 96% on R/A; Weight 81.65 kg aa5 (R); Height 5 ft. 4 in. (R); 09:00 BP 114 / 90; Pulse 76; Resp 18; Pulse Ox 98% on R/A; ph 10:16 BP 107 / 72; Pulse 78; Resp 18; Pulse Ox 95% on R/A; ph 11:20 BP 112 / 87; Pulse 75; Resp 18; Pulse Ox 98% on R/A; ph 12:27 BP 107 / 78; Pulse 76; Resp 18; Temp 97.5(O); Pulse Ox 100% on R/A; ph 07:34 Body Mass Index 30.90 (81.65 kg, 162.56 cm) aa5 ED Course: 07:23 Patient arrived in ED. mr 07:26 Wojciech Murphy DO is Attending Physician. ms3 07:27 Natalya Loaiza, ANTONIO is Primary Nurse. ph 07:34 Arm band placed on Patient placed in an exam room, on a stretcher. aa5 07:36 Triage completed. aa5 08:01 Inserted saline lock: 20 gauge in left forearm, using aseptic technique. Blood rk3 collected. Flushed with 10 mL NS. 08:02 CBC with Diff Sent. rk3 08:02 CMP Sent. rk3 08:02 Lipase Sent. rk3 09:31 CT Abd/Pelvis - IV Contrast Only In Process Unspecified. EDMS 10:16 Patient has correct armband on for positive identification. Placed in gown. Bed in low ph position. Call light in reach. Side rails up X2. Pulse ox on. NIBP on. Door closed. Noise minimized. Warm blanket given. Pillow given. Cool cloth applied. 12:28 No provider procedures requiring assistance completed. IV discontinued, intact, ph bleeding controlled, No redness/swelling at site. Pressure dressing applied. Administered Medications: 08:11 Drug: Famotidine IVP 20 mg IVP once; dilute with 10 mL 0.9% NaCl; give over 2 minutes ph Route: IVP; Site: left forearm; 08:30 Follow up: Response: No adverse reaction ph 08:11 Drug: NS 0.9% IV 1000 ml IV at 1 bolus Per protocol; to be given as a bolus over 60 ph minutes Route: IV; Rate: 1 bolus; Site: left forearm; 09:30 Follow up: Response: No adverse reaction; IV Status: Completed infusion; IV Intake: ph 1000ml 08:12 Drug: Ondansetron IVP 4 mg IVP once; over 2 minutes Route: IVP; Site: left forearm; ph 09:00 Follow up: Response: No adverse reaction ph 08:12 Drug: morphine IVP or IV 4 mg IVP once over 4 mins Route: IVP; Infused Over: 4 mins; ph Site: left forearm; 08:30 Follow up: Response: No adverse reaction ph 09:40 Drug: Ketorolac IVP 10 mg 10 mg IVP once Route: IVP; Site: left forearm; ph 10:00 Follow up: Response: No adverse reaction ph 12:27 Drug: Dicyclomine IM 20 mg IM once Route: IM; Site: left gluteus; ph 12:30 Follow up: Response: No adverse reaction; Medication administered at discharge. ph 12:27 Drug: Promethazine IM 12.5 mg IM once Route: IM; Site: left deltoid; ph 12:30 Follow up: Response: No adverse reaction; Medication administered at discharge. ph Medication: 10:16 VIS not applicable for this client. ph Intake: 09:30 IV: 1000ml; Total: 1000ml. ph Outcome: 11:47 Discharge ordered by . ms3 12:29 Discharged to home via wheelchair, with family, ph 12:29 Condition: good 12:29 Discharge instructions given to patient, Instructed on discharge instructions, follow up and referral plans. medication usage, Demonstrated understanding of instructions, follow-up care, medications, Prescriptions given X 2, 12:29 Patient left the ED. ph Signatures: Dispatcher [employer] EDMS Mally Schultz, Reg Reg mr JohnsonBea, RN RN aa5 Natalya Loaiza RN RN ph Wojciech Murphy DO DO ms3 Katy Parker rk3
[2024-05-29] MEDS ORDERED: DICYCLOMINE HCL 20 MG/2 ML AMP IM ONE (11:57)
[2024-05-29] MEDS ORDERED: PROMETHAZINE INJ 25 MG/ML AMP ONE (12:14)
[2024-05-29 12:52] VITALS: BP 107/78; TEMP 97.5; O2SAT 100
== END 2024-05-29 12:29 | disposition home or self-care (01) ==
LOC: ER 07:19
DX: R10.84 Generalized abdominal pain (principal); R11.2 Nausea with vomiting, unspecified; R19.7 Diarrhea, unspecified
CPT/HCPCS: 96361; 85025; 81001; 36415; 84703; 83690; 80053; 74177; 96375; 96372; 96374; 99284; Q9967; J2550; J0500; J2405; J7030